=== PATIENT | male | born 1980 | race Caucasian/White ===

== ENCOUNTER → 2018-12-11 10:12 | Outpatient (CLI) | payer OTHER, SELFPAY ==
[2016-08-02 09:59] VITALS: BMI 47.1
[2018-12-11 12:46] LABS: ALB/GLOB Ratio 1.4 RATIO (0.9-2.4); AST(SGOT) 17 U/L (15-37); Alanine Aminotransfer ALT/SGPT 35 U/L (16-61); Albumin, Serum 3.9 g/dL (3.2-5.0); Alkaline Phosphatase 77 U/L (45-117); Anion Gap 10 (5-15); BUN 14 mg/dL (7-18); BUN/Creat Ratio 13.1 RATIO (10-20); Calcium,Total 8.7 mg/dL (8.5-10.1); Chloride 103 mmol/L (98-107); Cholesterol 102 mg/dL (200); Creatinine, Serum 1.07 mg/dL (0.70-1.30); EST Glomerular Filtration Rate 82 mL/min (>60); Est Glom Filt Rate - Afr Amer 99 mL/min (>60); Globulin 2.7 g/dL (2.2-4.2); Glucose 98 mg/dL (74-106); High Density Lipoprotein 36 mg/dL; Potassium 4.3 mmol/L (3.5-5.1); Protein, Total 6.6 g/dL (6.4-8.2); Sodium Level 142 mmol/L (136-145); Thyroid Stim Hormone (TSH) 1.98 uIU/mL (0.358-3.74); Triglycerides 94 mg/dL; Very Low Density Lipoprotein 19 mg/dL (5-40)
[2018-12-11 12:58] LABS: Microalbumin,Random Urine 6.7 mg/L (NO RANGE EST.); Microalbumin:Creatinine Ratio 3.7 mg/g CRE (<30 mg/g CRE)
== END ==
PROVIDERS: Family Provider Family Medicine; PCP Family Medicine; Referring Provider Family Medicine; Visit Provider Family Medicine
DX: I10 Essential (primary) hypertension (principal); E78.6 Lipoprotein deficiency
CPT/HCPCS: 36415; 80053; 80061; 82043; 82570; 84443

== ENCOUNTER → 2020-03-08 16:41 | Outpatient (CLI) | payer OTHER, SELFPAY ==
[2016-08-02 09:59] VITALS: BMI 47.1
[2020-03-08 18:40] LABS: Hemoglobin A1c 6.5 % (3.8-5.6)
[2020-03-08 18:46] LABS: Microalbumin,Random Urine 14.7 mg/L (NO RANGE EST.); Microalbumin:Creatinine Ratio 5.3 mg/g CRE (<30 mg/g CRE)
[2020-03-08 18:49] LABS: ALB/GLOB Ratio 1.3 RATIO (0.9-2.4); AST(SGOT) 24 U/L (15-37); Alanine Aminotransfer ALT/SGPT 38 U/L (16-61); Alkaline Phosphatase 83 U/L (45-117); Anion Gap 5 (5-15); BUN 12 mg/dL (7-18); Chloride 103 mmol/L (98-107); Creatinine, Serum 0.92 mg/dL (0.70-1.30); EST Glomerular Filtration Rate 97 mL/min (>60); Est Glom Filt Rate - Afr Amer 117 mL/min (>60); Globulin 3.1 g/dL (2.2-4.2); Glucose 98 mg/dL (74-106); Potassium 3.9 mmol/L (3.5-5.1); Protein, Total 7.1 g/dL (6.4-8.2); Sodium Level 141 mmol/L (136-145)
== END ==
PROVIDERS: PCP Family Medicine; Referring Provider Family Medicine; Visit Provider Family Medicine
DX: I10 Essential (primary) hypertension (principal); Z68.42 Body mass index [BMI] 45.0-49.9, adult
CPT/HCPCS: 36415; 80053; 82043; 82570; 83036

== ENCOUNTER → 2020-06-05 08:53 | Outpatient (CLI) | payer OTHER, SELFPAY ==
[2016-08-02 09:59] VITALS: BMI 47.1
[2020-06-05 09:51] LABS: Absolute Lymphocyte Count 2.79 X10^3/uL (0.83-4.51); Absolute Neutrophil Count 8.4 X10^3/uL (2.0-7.7); Basophil# 0.11 X10^3/uL; Basophil% 0.9 % (0-1); Eosinophils% 2.3 % (0-5); Hematocrit 45.9 % (40-54); Hemoglobin 14.5 g/dL (13.0-16.5); Lymphocyte # 2.79 X10^3/ul (4.0); Lymphocyte % 21.7 % (19-41); Mean Corp Hgb Conc 31.6 g/dL (32-36); Mean Corpuscular Hgb 29.9 pg (27.0-32.0); Mean Corpuscular Volume 94.6 fL (80-94); Mean Platelet Vol. 10.6 fl (6.2-12.0); Monocyte# 1.25 X10^3/uL; Monocyte% 9.7 % (0-10); NRBC Flagged by Analyzer 0 % (0-5); Neutrophil # 8.36 X10^3/uL (2.7-7.7); Neutrophil % 64.9 % (47-70); Platelet Count 337 K/mm3 (150-450); RBC Distribution Width CV 11.6 % (11.6-14.6); Red Blood Count 4.85 M/mm3 (4.6-6.2); White Blood Count 12.9 K/mm3 (4.4-11.0)
[2020-06-05 10:43] LABS: ALB/GLOB Ratio 1.1 RATIO (0.9-2.4); AST(SGOT) 11 U/L (15-37); Alanine Aminotransfer ALT/SGPT 31 U/L (16-61); Albumin, Serum 3.9 g/dL (3.2-5.0); Alkaline Phosphatase 75 U/L (45-117); Anion Gap 7 (5-15); BUN 13 mg/dL (7-18); BUN/Creat Ratio 14.9 RATIO (10-20); Calcium,Total 9.1 mg/dL (8.5-10.1); Chloride 102 mmol/L (98-107); Cholesterol 73 mg/dL (200); Creatinine, Serum 0.87 mg/dL (0.70-1.30); EST Glomerular Filtration Rate 103 mL/min (>60); Est Glom Filt Rate - Afr Amer 125 mL/min (>60); Globulin 3.5 g/dL (2.2-4.2); Glucose 114 mg/dL (74-106); High Density Lipoprotein 34 mg/dL; Potassium 4.2 mmol/L (3.5-5.1); Protein, Total 7.4 g/dL (6.4-8.2); Sodium Level 137 mmol/L (136-145); Triglycerides 76 mg/dL; Very Low Density Lipoprotein 15 mg/dL (5-40)
[2020-06-05 10:46] LABS: Hemoglobin A1c 6.3 % (3.8-5.6)
== END ==
PROVIDERS: PCP Family Medicine; Referring Provider Family Medicine; Visit Provider Family Medicine
DX: E11.9 Type 2 diabetes mellitus without complications (principal)
CPT/HCPCS: 36415; 80053; 80061; 83036; 85025

== ENCOUNTER 2020-09-20 15:46 | Outpatient (RCR) | payer OTHER, SELFPAY ==
[2016-08-02 09:59] VITALS: BMI 47.1
== END 2020-11-21 23:59 ==
LOC: IMMUN 15:46
PROVIDERS: PCP Family Medicine; Referring Provider Family Medicine; Visit Provider Family Medicine
DX: Z23 Encounter for immunization (principal)
CPT/HCPCS: 0001A; 0002A; 91300

== ENCOUNTER → 2021-05-21 08:05 | Outpatient (CLI) | payer OTHER, SELFPAY ==
[2021-05-21 10:20] LABS: AST(SGOT) 13 U/L (15-37); Alanine Aminotransfer ALT/SGPT 28 U/L (16-61); Albumin, Serum 3.6 g/dL (3.2-5.0); Alkaline Phosphatase 69 U/L (45-117); Anion Gap 6 (5-15); BUN 12 mg/dL (7-18); BUN/Creat Ratio 13.6 RATIO (10-20); Calcium,Total 8.9 mg/dL (8.5-10.1); Chloride 103 mmol/L (98-107); Creatinine, Serum 0.88 mg/dL (0.70-1.30); EST Glomerular Filtration Rate 101 mL/min (>60); Est Glom Filt Rate - Afr Amer 122 mL/min (>60); Globulin 3.5 g/dL (2.2-4.2); Glucose 132 mg/dL (74-106); Protein, Total 7.1 g/dL (6.4-8.2); Sodium Level 138 mmol/L (136-145)
[2021-05-21 10:25] LABS: Microalbumin,Random Urine 6.1 mg/L (NO RANGE EST.); Microalbumin:Creatinine Ratio 4.7 mg/g CRE (<30 mg/g CRE)
== END ==
PROVIDERS: PCP Family Medicine; Referring Provider Family Medicine; Visit Provider Family Medicine
DX: I10 Essential (primary) hypertension (principal)
CPT/HCPCS: 36415; 80053; 82043; 82570

== ENCOUNTER → 2021-11-14 | Outpatient (CLI) | payer OTHER, SELFPAY ==
[2021-11-14 10:27] LABS: Microalbumin,Random Urine 15.2 mg/L (NO RANGE EST.); Microalbumin:Creatinine Ratio 8.4 mg/g CRE (<30 mg/g CRE)
[2021-11-14 10:40] LABS: ALB/GLOB Ratio 1.1 RATIO (0.9-2.4); AST(SGOT) 23 U/L (15-37); Alanine Aminotransfer ALT/SGPT 39 U/L (16-61); Albumin, Serum 3.6 g/dL (3.2-5.0); Alkaline Phosphatase 61 U/L (45-117); Anion Gap 5 (5-15); BUN 13 mg/dL (7-18); BUN/Creat Ratio 13.3 RATIO (10-20); Calcium,Total 8.8 mg/dL (8.5-10.1); Chloride 102 mmol/L (98-107); Creatinine, Serum 0.98 mg/dL (0.70-1.30); EST Glomerular Filtration Rate 90 mL/min (>60); Est Glom Filt Rate - Afr Amer 109 mL/min (>60); Globulin 3.4 g/dL (2.2-4.2); Glucose 140 mg/dL (74-106); Potassium 4.4 mmol/L (3.5-5.1); Sodium Level 138 mmol/L (136-145); Thyroid Stim Hormone (TSH) 2.46 uIU/mL (0.358-3.74)
[2021-11-14 10:58] LABS: Hemoglobin A1c 6.8 % (3.8-5.6)
== END | disposition home or self-care (01) ==
PROVIDERS: PCP Family Medicine; Visit Provider Family Medicine
DX: E11.9 Type 2 diabetes mellitus without complications (principal); E66.01 Morbid (severe) obesity due to excess calories; Z68.43 Body mass index [BMI] 50.0-59.9, adult; I10 Essential (primary) hypertension
CPT/HCPCS: 36415; 80053; 82043; 82570; 83036; 84443

== ENCOUNTER → 2022-05-13 | Outpatient (CLI) | payer OTHER, SELFPAY ==
[2022-05-13 09:46] LABS: Absolute Lymphocyte Count 2.93 X10^3/uL (0.83-4.51); Basophil# 0.14 X10^3/uL; Eosinophil# 0.31 X10^3/uL; Eosinophils% 2.2 % (0-5); Hematocrit 45.4 % (40-54); Hemoglobin 15.2 g/dL (13.0-16.5); Lymphocyte # 2.93 X10^3/ul (0.83-4.51); Mean Corp Hgb Conc 33.5 g/dL (32-36); Mean Corpuscular Hgb 31.2 pg (27.0-32.0); Mean Corpuscular Volume 93.2 fL (80-94); Mean Platelet Vol. 10.9 fl (6.2-12.0); Monocyte% 10.1 % (0-10); NRBC Flagged by Analyzer 0 % (0-5); Neutrophil # 9.02 X10^3/uL (2.7-7.7); Neutrophil % 64.8 % (47-70); Platelet Count 337 K/mm3 (150-450); RBC Distribution Width CV 11.9 % (11.6-14.6); RBC Distribution Width SD 41.1 fl (35.1-43.9); Red Blood Count 4.87 M/mm3 (4.6-6.2); White Blood Count 13.9 K/mm3 (4.4-11.0)
[2022-05-13 09:59] LABS: ALB/GLOB Ratio 1.3 RATIO (0.9-2.4); AST(SGOT) 12 U/L (15-37); Alanine Aminotransfer ALT/SGPT 33 U/L (16-61); Albumin, Serum 3.8 g/dL (3.2-5.0); Alkaline Phosphatase 74 U/L (45-117); Anion Gap 7 (5-15); BUN 9 mg/dL (7-18); BUN/Creat Ratio 10.2 RATIO (10-20); Chloride 105 mmol/L (98-107); Cholesterol 75 mg/dL (200); Creatinine, Serum 0.88 mg/dL (0.70-1.30); EST Glomerular Filtration Rate 101 mL/min (>60); Est Glom Filt Rate - Afr Amer 122 mL/min (>60); Globulin 2.9 g/dL (2.2-4.2); Glucose 155 mg/dL (74-106); High Density Lipoprotein 35 mg/dL; Potassium 4.3 mmol/L (3.5-5.1); Protein, Total 6.7 g/dL (6.4-8.2); Sodium Level 140 mmol/L (136-145); Triglycerides 91 mg/dL; Very Low Density Lipoprotein 18 mg/dL (5-40)
[2022-05-13 10:04] LABS: Hemoglobin A1c 7.2 % (3.8-5.6)
== END | disposition home or self-care (01) ==
LOC: MFPLAB 08:34
PROVIDERS: PCP Family Medicine; Visit Provider Family Medicine
DX: E11.9 Type 2 diabetes mellitus without complications (principal)
CPT/HCPCS: 36415; 80053; 80061; 83036; 85025

== ENCOUNTER → 2022-11-26 | Outpatient (CLI) | payer OTHER, SELFPAY ==
[2022-11-26 09:54] LABS: Absolute Lymphocyte Count 2.92 X10^3/uL (0.83-4.51); Absolute Neutrophil Count 9.9 X10^3/uL (2.0-7.7); Basophil# 0.14 X10^3/uL; Basophil% 0.9 % (0-1); Hematocrit 46.4 % (40-54); Hemoglobin 14.8 g/dL (13.0-16.5); Lymphocyte # 2.92 X10^3/ul (0.83-4.51); Lymphocyte % 19.8 % (19-41); Mean Corp Hgb Conc 31.9 g/dL (32-36); Mean Corpuscular Volume 94.1 fL (80-94); Mean Platelet Vol. 10.7 fl (6.2-12.0); Monocyte# 1.38 X10^3/uL; Monocyte% 9.3 % (0-10); NRBC Flagged by Analyzer 0 % (0-5); Neutrophil # 9.86 X10^3/uL (2.7-7.7); Neutrophil % 66.9 % (47-70); Platelet Count 353 K/mm3 (150-450); RBC Distribution Width CV 11.9 % (11.6-14.6); RBC Distribution Width SD 41.2 fl (35.1-43.9); Red Blood Count 4.93 M/mm3 (4.6-6.2); White Blood Count 14.8 K/mm3 (4.4-11.0)
[2022-11-26 10:25] LABS: ALB/GLOB Ratio 1.1 RATIO (0.9-2.4); AST(SGOT) 15 U/L (15-37); Alanine Aminotransfer ALT/SGPT 27 U/L (16-61); Albumin, Serum 3.9 g/dL (3.2-5.0); Alkaline Phosphatase 66 U/L (45-117); Anion Gap 6 (5-15); BUN 11 mg/dL (7-18); BUN/Creat Ratio 11.8 RATIO (10-20); Calcium,Total 9.2 mg/dL (8.5-10.1); Chloride 102 mmol/L (98-107); Creatinine, Serum 0.94 mg/dL (0.70-1.30); EST Glomerular Filtration Rate 94 mL/min (>60); Est Glom Filt Rate - Afr Amer 114 mL/min (>60); Globulin 3.6 g/dL (2.2-4.2); Glucose 130 mg/dL (74-106); Potassium 4.1 mmol/L (3.5-5.1); Protein, Total 7.5 g/dL (6.4-8.2); Sodium Level 138 mmol/L (136-145)
== END | disposition home or self-care (01) ==
LOC: MFPLAB 08:41
PROVIDERS: PCP Family Medicine; Visit Provider Family Medicine
DX: M79.604 Pain in right leg (principal); E11.9 Type 2 diabetes mellitus without complications
CPT/HCPCS: 36415; 80053; 85025

== ENCOUNTER → 2023-12-11 | Outpatient (CLI) | payer OTHER, SELFPAY ==
[2023-12-11 10:07] LABS: Absolute Lymphocyte Count 2.62 X10^3/uL (0.83-4.51); Absolute Neutrophil Count 7.9 X10^3/uL (2.0-7.7); Basophil# 0.11 X10^3/uL; Basophil% 0.9 % (0-1); Eosinophil# 0.23 X10^3/uL; Eosinophils% 1.9 % (0-5); Hematocrit 45.2 % (40-54); Hemoglobin 14.9 g/dL (13.0-16.5); Lymphocyte # 2.62 X10^3/ul (0.83-4.51); Lymphocyte % 21.8 % (19-41); Mean Corpuscular Hgb 30.6 pg (27.0-32.0); Mean Corpuscular Volume 92.8 fL (80-94); Mean Platelet Vol. 10.5 fl (6.2-12.0); Monocyte# 1.15 X10^3/uL; Monocyte% 9.6 % (0-10); NRBC Flagged by Analyzer 0 % (0-5); Neutrophil # 7.86 X10^3/uL (2.7-7.7); Neutrophil % 65.4 % (47-70); Platelet Count 363 K/mm3 (150-450); RBC Distribution Width CV 12.1 % (11.6-14.6); RBC Distribution Width SD 41.7 fl (35.1-43.9); Red Blood Count 4.87 M/mm3 (4.6-6.2)
[2023-12-11 10:39] LABS: ALB/GLOB Ratio 1.2 RATIO (0.9-2.4); AST(SGOT) 16 U/L (15-37); Alanine Aminotransfer ALT/SGPT 27 U/L (16-61); Albumin, Serum 3.9 g/dL (3.2-5.0); Alkaline Phosphatase 58 U/L (45-117); Anion Gap 7 (5-15); BUN 10 mg/dL (7-18); BUN/Creat Ratio 11.9 RATIO (10-20); Calcium,Total 9.4 mg/dL (8.5-10.1); Chloride 104 mmol/L (98-107); Cholesterol 65 mg/dL (200); Creatinine, Serum 0.84 mg/dL (0.70-1.30); EST Glomerular Filtration Rate 106 mL/min (>60); Est Glom Filt Rate - Afr Amer 129 mL/min (>60); Globulin 3.3 g/dL (2.2-4.2); Glucose 102 mg/dL (74-106); High Density Lipoprotein 33 mg/dL; Protein, Total 7.2 g/dL (6.4-8.2); Sodium Level 138 mmol/L (136-145); Triglycerides 105 mg/dL; Very Low Density Lipoprotein 21 mg/dL (5-40)
[2023-12-11 11:17] LABS: Microalbumin,Random Urine 7.1 mg/L (NO RANGE EST.); Microalbumin:Creatinine Ratio 4.9 mg/g CRE (<30 mg/g CRE)
== END | disposition home or self-care (01) ==
LOC: MFPLAB 09:07
PROVIDERS: PCP Family Medicine; Visit Provider Family Medicine
DX: E66.01 Morbid (severe) obesity due to excess calories (principal); Z68.43 Body mass index [BMI] 50.0-59.9, adult; E11.9 Type 2 diabetes mellitus without complications
CPT/HCPCS: 36415; 80053; 80061; 82043; 82570; 85025

== ENCOUNTER → 2024-06-04 | Outpatient (CLI) | payer OTHER, SELFPAY ==
[2024-06-04 11:10] LABS: ALB/GLOB Ratio 1.2 RATIO (0.9-2.4); AST(SGOT) 14 U/L (15-37); Alanine Aminotransfer ALT/SGPT 34 U/L (16-61); Albumin, Serum 3.7 g/dL (3.2-5.0); Alkaline Phosphatase 65 U/L (45-117); Anion Gap 6 (5-15); BUN 12 mg/dL (7-18); BUN/Creat Ratio 12.7 RATIO (10-20); Calcium,Total 8.9 mg/dL (8.5-10.1); Chloride 104 mmol/L (98-107); Creatinine, Serum 0.94 mg/dL (0.70-1.30); EST Glomerular Filtration Rate 93 mL/min (>60); Est Glom Filt Rate - Afr Amer 112 mL/min (>60); Globulin 3.2 g/dL (2.2-4.2); Glucose 119 mg/dL (74-106); Potassium 4.2 mmol/L (3.5-5.1); Protein, Total 6.9 g/dL (6.4-8.2); Sodium Level 138 mmol/L (136-145)
== END | disposition home or self-care (01) ==
LOC: MFPLAB 08:30
PROVIDERS: PCP Family Medicine; Referring Provider Family Medicine; Visit Provider Family Medicine
DX: E11.9 Type 2 diabetes mellitus without complications (principal); Z68.43 Body mass index [BMI] 50.0-59.9, adult; E66.813 Obesity, class 3
CPT/HCPCS: 36415; 80053; 84443

== ENCOUNTER → 2024-11-23 | Outpatient (CLI) | payer OTHER, SELFPAY ==
[2024-11-23 10:26] LABS: Absolute Lymphocyte Count 2.92 X10^3/uL (0.83-4.51); Basophil# 0.14 X10^3/uL; Basophil% 1.1 % (0-1); Eosinophil# 0.23 X10^3/uL; Eosinophils% 1.8 % (0-5); Hematocrit 44.8 % (40-54); Hemoglobin 15.1 g/dL (13.0-16.5); Lymphocyte # 2.92 X10^3/ul (0.83-4.51); Lymphocyte % 23.3 % (19-41); Mean Corp Hgb Conc 33.7 g/dL (32-36); Mean Corpuscular Hgb 31.2 pg (27.0-32.0); Mean Corpuscular Volume 92.6 fL (80-94); Mean Platelet Vol. 10.7 fl (6.2-12.0); Monocyte# 1.17 X10^3/uL; Monocyte% 9.3 % (0-10); NRBC Flagged by Analyzer 0 % (0-5); Neutrophil # 8.03 X10^3/uL (2.7-7.7); Platelet Count 313 K/mm3 (150-450); RBC Distribution Width CV 11.9 % (11.6-14.6); RBC Distribution Width SD 40.8 fl (35.1-43.9); Red Blood Count 4.84 M/mm3 (4.6-6.2); White Blood Count 12.6 K/mm3 (4.4-11.0)
--- OUTSIDE RECORDS SUMMARY | 2024-11-23 10:41 | XMS RPT_ITS | CCD ---
Author Organization [facility] Care Team Providers Care Promotions Producer Name Role Phone Librado Rai Attending Unavailable Fredi, Librado Primary Care Unavailable Librado Rai Attending Unavailable Librado Rai Referring Unavailable Librado Rai Primary Care Unavailable Assessment, Health Risk Attending Unavaila ble Librado Rai Primary Care Unavailable Problems Problem Classification Problem Date Documented Da te Episodic/Chronic Diabetes mellitus without complication (1 source) Type 2 diabetes mellitus without complications; Translations: [Type 2 diabetes mellitus without complications] Onset: 07-01-2024 Chronic Other nutritional; endocrine; and metabolic disorders (1 source) Morbid (severe) obesity due to excess calories; Translations: [Morbid (severe) obesity due to excess calories] Onset: 12-24-2023 Chronic Results Test Name Value Interpretation Reference Range Facil ity Comprehensive Metabolic Prof wyon 06-04-2024 Albumin [Mass/Vol] 3.7 g/dL Normal 3.2-5.0 [facility] Comment on above: Order Comment: Order Date: 06/04/24 Order Info: 0786-1 - CMP Order Info: 3016-3 - TSH Performed By: #### L 501.4720, L561.5269 #### [facility] [address] [place], [address] Albumin/Globulin [Mass ratio] 1.2 {ratio} Normal 0.9-2.4 [facility] Comment on above: Order Comment: Order Date: 06/04/24 Order Info: 0786-1 - CMP Order Info: 3016-3 - TSH Performed By: #### L 501.9520, L506.0811 #### [facility] [address] [place], [address] ALK P 65 U/L Normal 45-117 [facility] Comment on above: Order Comment: Order Date: 06/04/24 Order Info: 0786-1 - CMP Order Info: 3015-3 - TSH Performed By: #### L 501.9520, L500.4050 #### [facility] [address] [place], [address] ALT [Catalytic activity/Vol] 34 U/L Normal 16-61 [facility] Comment on above: Order Comment: Order Date: 06/04/24 Order Info: 86-1 - CMP Order Info: 3015-3 - TSH Performed By: #### L 501.9520, L500.4050 #### [facility] [address] [place], [address] AST [Catalytic activity/Vol] 14 U/L Low 15-37 [facility] Comment on above: Order Comment: Order Date: 06/04/24 Order Info: 07-1 - CMP Order Info: 3 - TSH Performed By: #### L 501.9520, L500.4050 #### [facility] [address] [place], [address] Bilirubin [Mass/Vol] 1.10 mg/dL High 0.20-1.00 [facility] Comment on above: Order Comment: Order Date: 06/04/24 Order Info: 07-1 - CMP Order Info: 301-3 - TSH Result Comment: For patients on eltrombopag therapy, use of Dimension Estelline TBIL is not recommended. Performed By: #### L 501.9520, L500.4050 #### [facility] [address] [place], [address] BUN/CRE 12.7 RATIO Normal 10-20 [facility] Comment on above: Order Comment: Order Date: 06/04/24 Order Info: 0786-1 - CMP Order Info: 3015-3 - TSH Performed By: #### L 501.9520, L500.4050 #### [facility] [address] [place], [address] CA,Total 8.9 mg/dL Normal 8.5-10.1 [facility] Comment on above: Order Comment: Order Date: 06/04/24 Order Info: 0786-1 - CMP Order Info: 30163 - TSH Performed By: #### L 260.9520, L500.4050 #### [facility] [address] [place], [address] Chloride [Moles/Vol] 104 mmol/L Normal 98-107 [facility] Comment on above: Order Comment: Order Date: 06/04/24 Order Info: 0786- - CMP Order Info: 30163 - TSH Performed By: #### L 501.9520, L500.4050 #### [facility] [address] [place], [address] CO2 [Moles/Vol] 28.0 mmol/L Normal 21.0-32.0 [facility] Comment on above: Order Comment: Order Date: 06/04/24 Order Info: 0786- - CMP Order Info: 3013 - TSH Performed By: #### L 501.9520, L500.4050 #### [facility] [address] [place], [address] Creatinine [Mass/Vol] 0.94 mg/dL Normal 0.70-1.30 [facility] Comment on above: Order Comment: Order Date: 06/04/24 Order Info: 0786- - CMP Order Info: 3016-3 - TSH Result Comment: The validity of the calculated GFR GFRAA in patients over 70 years has not been determined. Clinical correlation is essential. Performed By: #### L 501.9520, L500.4050 #### [facility] [address] [place], [address] EST GFR - AA 112 mL/min Normal >60 [facility] Comment on above: Order Comment: Order Date: 06/04/24 Order Info: 0786-1 - CMP Order Info: 3015-08 - TSH Result Comment: Afri can Portuguese GFR Calc Performed By: #### L 501.9520, L500.4050 #### [facility] [address] [place], [address] GAP 6 Normal 5-15 [facility] Comment on above: Order Comment: Order Date: 06/04/24 Order Info: 0786 - CMP Order Info: 3015-08 - TSH Performed By: #### L 501.9520, L500.4050 #### [facility] [address] [place], [address] GFR/1.73 sq M.predicted among non-blacks MDRD (S/P/Bld) [Vol rate/Area] 93 mL/min/{1.73_m2} Normal >60 [facility] Comment on above: Order Comment: Order Date: 06/04/24 Order Info: 07 - [facility] Order Info: 3015-08 - TSH Result Comment: Non- GFR Calc Performed By: #### L 501.9520, L500.4050 #### [facility] [address] [place], [address] Globulin (S) [Mass/Vol] 3.2 g/dL Normal 2.2-4.2 [facility] Comment on above: Order Comment: Order Date: 06/04/24 Order Info: 0786 - CMP Order Info: 3015-08 - TSH Performed By: #### L 501.9520, L500.4050 #### [facility] [address] [place], [address] Glucose [Mass/Vol] 119 mg/dL High 74-106 [facility] Comment on above: Order Comment: Order Date: 06/04/24 Order Info: 0786- - CMP Order Info: 3015-08 - TSH Result Comment: Fast ing Glucose result from 100 to 125 mg/dL suggests IMPAIRED HOMEOSTASIS per A.D.A. criteria. Performed By: #### L 501.9520, L500.4050 #### [facility] [address] [place], [address] Potassium [Moles/Vol] 4.2 mmol/L Normal 3.5-5.1 [facility] Comment on above: Order Comment: Order Date: 06/04/24 Order Info: 0786-1 - CMP Order Info: 301-3 - TSH Performed By: #### L 501.9520, L500.4050 #### [facility] [address] [place], [address] Sodium [Moles/Vol] 138 mmol/L Normal 136-145 [facility] Comment on above: Order Comment: Order Date: 06/04/24 Order Info: 0786-1 - CMP Order Info: 301-3 - TSH Performed By: #### L 501.9520, L500.4050 #### [facility] [address] [place], [address] T PROT 6.9 g/dL Normal 6.4-8.2 [facility] Comment on above: Order Comment: Order Date: 06/04/24 Order Info: 0786- - CMP Order Info: 3013 - TSH Performed By: #### L 501.9520, L500.4050 #### [facility] [address] [place], [address] Urea nitrogen [Mass/Vol] 12 mg/dL Normal 7-18 [facility] Comment on above: Order Comment: Order Date: 06/04/24 Order Info: 0786-1 - CMP Order Info: 3016-3 - TSH Performed By: #### L 501.9520, L500.4050 #### [facility] [address] [place], [address] Thyroid Stim Hormone (TSH)on 06-04-2024 TSH 1.970 uIU/mL Normal 0.358-3.740 [facility] Comment on above: Order Comment: Order Date: 06/04/24 Order Info: 0786-1 - CMP Order Info: 3016-3 - TSH Performed By: #### L 501.9520, L500.4050 #### [facility] [address] [place], [address] Lipid Profileon 01-01-2024 CHOL Normal 200 [facility] Comment on above: Result Comment: NO S HOW Performed By: #### L 500.4100 #### [facility] [address] [place], [address] HDL Normal [facility] Comment on above: Result Comment: NO S HOW Performed By: #### L 500.4100 #### [facility] [address] [place], [address] LDL Normal 0-130 [facility] Comment on above: Result Comment: NO S HOW Performed By: #### L 500.4100 #### [facility] [address] [place], [address] TRIG Normal [facility] Comment on above: Result Comment: NO S HOW Performed By: #### L 500.4100 #### [facility] [address] [place], [address] VLDL Normal 5-40 [facility] Comment on above: Result Comment: NO S HOW Performed By: #### L 500.4100 #### [facility] [address] [place], [address] CBC W/Diff, Automatedon 11-15 Absolute Lymph 2.62 X10 3/uL Normal 0.83-4.51 [facility] Comment on above: Order Comment: Order Date: 12/11/23 Order Info: 0184-1 - CBCD Performed By: #### L 100.0100, L500.4050, L502.0250, L500.4100 #### [facility] [address] [place], [address] Absolute Neut 7.9 X10 3/uL High 2.0-7.7 [facility] Comment on above: Order Comment: Order Date: 12/11/23 Order Info: 0184-1 - CBCD Performed By: #### L 100.0100, L500.4050, L502.0250, L500.4100 #### [facility] [address] [place], [address] Basophils/100 WBC (Bld) 0.9 % Normal 0-1 [facility] Comment on above: Order Comment: Order Date: 12/11/23 Order Info: 0184-1 - CBCD Performed By: #### L 100.0100, L500.4050, L502.0250, L500.4100 #### [facility] [address] [place], [address] Eosinophils/100 WBC (Bld) 1.9 % Normal 0-5 [facility] Comment on above: Order Comment: Order Date: 12/11/23 Order Info: 0184-1 - CBCD Performed By: #### L 100.0100, L500.4050, L502.0250, L500.4100 #### [facility] [address] [place], [address] Erythrocyte distribution width (RBC) [Ratio] 12.1 % Normal 11.6-14.6 [facility] Comment on above: Order Comment: Order Date: 12/11/23 Order Info: 0184-1 - CBCD Performed By: #### L 100.0100, L500.4050, L502.0250, L500.4100 #### [facility] [address] [place], [address] Hematocrit (Bld) [Volume fraction] 45.2 % Normal 40-54 [facility] Comment on above: Order Comment: Order Date: 12/11/23 Order Info: 0184-1 - CBCD Performed By: #### L 100.0100, L500.4050, L502.0250, L500.4100 #### [facility] [address] [place], [address] Hemoglobin (Bld) [Mass/Vol] 14.9 g/dL Normal 13.0-16.5 [facility] Comment on above: Order Comment: Order Date: 12/11/23 Order Info: 0184-1 - CBCD Performed By: #### L 100.0100, L500.4050, L502.0250, L500.4100 #### [facility] [address] [place], [address] IG% 0.400 Normal 0.0-0.9 [facility] Comment on above: Order Comment: Order Date: 12/11/23 Order Info: 0184- - CBCD Result Comment: IG% - Immature Granulocytes (promyelocytes, myelocytes and metamyelocytes) > 1% indicates that a LEFT SHIFT is Present. Performed By: #### L 100.0100, L500.4050, L502.0250, L500.4100 #### [facility] [address] [place], [address] Lymphocytes/100 WBC (Bld) 21.8 % Normal 19-41 [facility] Comment on above: Order Comment: Order Date: 12/11/23 Order Info: 0184-1 - CBCD Performed By: #### L 100.0100, L500.4050, L502.0250, L500.4100 #### [facility] [address] [place], [address] MCH (RBC) [Entitic mass] 30.6 pg Normal 27.0-32.0 [facility] Comment on above: Order Comment: Order Date: 12/11/23 Order Info: 0184- - CBCD Performed By: #### L 100.0100, L500.4050, L502.0250, L500.4100 #### [facility] [address] [place], [address] MCHC (RBC) [Mass/Vol] 33.0 g/dL Normal 32-36 [facility] Comment on above: Order Comment: Order Date: 12/11/23 Order Info: 018-1 - CBCD Performed By: #### L 100.0100, L500.4050, L502.0250, L500.4100 #### [facility] [address] [place], [address] MCV (RBC) [Entitic vol] 92.8 fL Normal 80-94 [facility] Comment on above: Order Comment: Order Date: 12/11/23 Order Info: 018- - CBCD Performed By: #### L 100.0100, L500.4050, L502.0250, L500.4100 #### [facility] [address] [place], [address] Monocytes/100 WBC (Bld) 9.6 % Normal 0-10 [facility] Comment on above: Order Comment: Order Date: 12/11/23 Order Info: 018- - CBCD Performed By: #### L 100.0100, L500.4050, L502.0250, L500.4100 #### [facility] [address] [place], [address] Neutrophils/100 WBC (Bld) 65.4 % Normal 47-70 [facility] Comment on above: Order Comment: Order Date: 12/11/23 Order Info: 018- - CBCD Performed By: #### L 100.0100, L500.4050, L502.0250, L500.4100 #### [facility] [address] [place], [address] Nucleated RBC (Bld) [#/Vol] 0 10*3/uL Normal 0-5 [facility] Comment on above: Order Comment: Order Date: 12/11/23 Order Info: 0184-1 - CBCD Performed By: #### L 100.0100, L500.4050, L502.0250, L500.4100 #### [facility] [address] [place], [address] Platelet mean volume (Bld) [Entitic vol] 10.5 fL Normal 6.2-12.0 [facility] Comment on above: Order Comment: Order Date: 12/11/23 Order Info: 0184-1 - CBCD Performed By: #### L 100.0100, L500.4050, L502.0250, L500.4100 #### [facility] [address] [place], [address] Platelets (Bld) [#/Vol] 363 10*3/uL Normal 150-450 [facility] Comment on above: Order Comment: Order Date: 12/11/23 Order Info: 0184- - CBCD Performed By: #### L 100.0100, L500.4050, L502.0250, L500.4100 #### [facility] [address] [place], [address] RBC (Bld) [#/Vol] 4.87 10*6/uL Normal 4.6-6.2 [facility] Comment on above: Order Comment: Order Date: 12/11/23 Order Info: 0184- - CBCD Performed By: #### L 100.0100, L500.4050, L502.0250, L500.4100 #### [facility] [address] [place], [address] RDW SD 41.7 fl Normal 35.1-43.9 [facility] Comment on above: Order Comment: Order Date: 12/11/23 Order Info: 0184-1 - CBCD Performed By: #### L 100.0100, L500.4050, L502.0250, L500.4100 #### [facility] [address] [place], [address] WBC (Bld) [#/Vol] 12.0 10*3/uL High 4.4-11.0 [facility] Comment on above: Order Comment: Order Date: 12/11/23 Order Info: 0184-1 - CBCD Performed By: #### L 100.0100, L500.4050, L502.0250, L500.4100 #### [facility] [address] [place], [address] Comprehensive Metabolic Prof ilon 12-11-2023 Albumin [Mass/Vol] 3.9 g/dL Normal 3.2-5.0 [facility] Comment on above: Order Comment: Order Date: 12/11/23 Order Info: 0786-1 - CMP Order Info: [id number] - LIPID Performed By: #### L 100.0100, L500.4050, L502.0250, L500.4100 #### [facility] [address] [place], [address] Albumin/Globulin [Mass ratio] 1.2 {ratio} Normal 0.9-2.4 [facility] Comment on above: Order Comment: Order Date: 12/11/23 Order Info: 0786-1 - CMP Order Info: [id number] - LIPID Performed By: #### L 100.0100, L500.4050, L502.0250, L500.4100 #### [facility] [address] [place], [address] ALK P 58 U/L Normal 45-117 [facility] Comment on above: Order Comment: Order Date: 12/11/23 Order Info: 0786-1 - CMP Order Info: [id number] - LIPID Performed By: #### L 100.0100, L500.4050, L502.0250, L500.4100 #### [facility] [address] [place], [address] ALT [Catalytic activity/Vol] 27 U/L Normal 16-61 [facility] Comment on above: Order Comment: Order Date: 12/11/23 Order Info: 0786- - CMP Order Info: [id number] - LIPID Performed By: #### L 100.0100, L500.4050, L502.0250, L500.4100 #### [facility] [address] [place], [address] AST [Catalytic activity/Vol] 16 U/L Normal 15-37 [facility] Comment on above: Order Comment: Order Date: 12/11/23 Order Info: 0786- - CMP Order Info: [id number] - LIPID Performed By: #### L 100.0100, L500.4050, L502.0250, L500.4100 #### [facility] [address] [place], [address] Bilirubin [Mass/Vol] 1.70 mg/dL High 0.20-1.00 [facility] Comment on above: Order Comment: Order Date: 12/11/23 Order Info: 07- - CMP Order Info: [id number] - LIPID Result Comment: For patients on eltrombopag therapy, use of Dimension Estelline TBIL is not recommended. Performed By: #### L 100.0100, L500.4050, L502.0250, L500.4100 #### [facility] [address] [place], [address] BUN/CRE 11.9 RATIO Normal 10-20 [facility] Comment on above: Order Comment: Order Date: 12/11/23 Order Info: 0786- - CMP Order Info: [id number] - LIPID Performed By: #### L 100.0100, L500.4050, L502.0250, L500.4100 #### [facility] [address] [place], [address] CA,Total 9.4 mg/dL Normal 8.5-10.1 [facility] Comment on above: Order Comment: Order Date: 12/11/23 Order Info: 0786- - CMP Order Info: [id number] - LIPID Performed By: #### L 100.0100, L500.4050, L502.0250, L500.4100 #### [facility] [address] [place], [address] Chloride [Moles/Vol] 104 mmol/L Normal 98-107 [facility] Comment on above: Order Comment: Order Date: 12/11/23 Order Info: 0786-1 - CMP Order Info: [id number] - LIPID Performed By: #### L 100.0100, L500.4050, L502.0250, L500.4100 #### [facility] [address] [place], [address] CO2 [Moles/Vol] 27.0 mmol/L Normal 21.0-32.0 [facility] Comment on above: Order Comment: Order Date: 12/11/23 Order Info: 0786- - CMP Order Info: [id number] - LIPID Performed By: #### L 100.0100, L500.4050, L502.0250, L500.4100 #### [facility] [address] [place], [address] Creatinine [Mass/Vol] 0.84 mg/dL Normal 0.70-1.30 [facility] Comment on above: Order Comment: Order Date: 12/11/23 Order Info: 0786- - CMP Order Info: [id number] - LIPID Result Comment: The validity of the calculated GFR GFRAA in patients over 70 years has not been determined. Clinical correlation is essential. Performed By: #### L 100.0100, L500.4050, L502.0250, L500.4100 #### [facility] [address] [place], [address] EST GFR - AA 129 mL/min Normal >60 [facility] Comment on above: Order Comment: Order Date: 12/11/23 Order Info: 0786-1 - CMP Order Info: [id number] - LIPID Result Comment: Afri can Portuguese GFR Calc Performed By: #### L 100.0100, L500.4050, L502.0250, L500.4100 #### [facility] [address] [place], [address] GAP 7 Normal 5-15 [facility] Comment on above: Order Comment: Order Date: 12/11/23 Order Info: 0786-1 - CMP Order Info: [id number] - LIPID Performed By: #### L 100.0100, L500.4050, L502.0250, L500.4100 #### [facility] [address] [place], [address] GFR/1.73 sq M.predicted among non-blacks MDRD (S/P/Bld) [Vol rate/Area] 106 mL/min/{1.73_m2} Normal >60 [facility] Comment on above: Order Comment: Order Date: 12/11/23 Order Info: 07 - CMP Order Info: [id number] - LIPID Result Comment: Non- GFR Calc Performed By: #### L 100.0100, L500.4050, L502.0250, L500.4100 #### [facility] [address] [place], [address] Globulin (S) [Mass/Vol] 3.3 g/dL Normal 2.2-4.2 [facility] Comment on above: Order Comment: Order Date: 12/11/23 Order Info: 0786- - CMP Order Info: [id number] - LIPID Performed By: #### L 100.0100, L500.4050, L502.0250, L500.4100 #### [facility] [address] [place], [address] Glucose [Mass/Vol] 102 mg/dL Normal 74-106 [facility] Comment on above: Order Comment: Order Date: 12/11/23 Order Info: 0786-1 - CMP Order Info: [id number] - LIPID Result Comment: Fast ing Glucose result from 100 to 125 mg/dL suggests IMPAIRED HOMEOSTASIS per A.D.A. criteria. Performed By: #### L 100.0100, L500.4050, L502.0250, L500.4100 #### [facility] [address] [place], [address] Potassium [Moles/Vol] 4.0 mmol/L Normal 3.5-5.1 [facility] Comment on above: Order Comment: Order Date: 12/11/23 Order Info: 0786-1 - CMP Order Info: [id number] - LIPID Performed By: #### L 100.0100, L500.4050, L502.0250, L500.4100 #### [facility] [address] [place], [address] Sodium [Moles/Vol] 138 mmol/L Normal 136-145 [facility] Comment on above: Order Comment: Order Date: 12/11/23 Order Info: 0786- - CMP Order Info: [id number] - LIPID Performed By: #### L 100.0100, L500.4050, L502.0250, L500.4100 #### [facility] [address] [place], [address] T PROT 7.2 g/dL Normal 6.4-8.2 [facility] Comment on above: Order Comment: Order Date: 12/11/23 Order Info: 0786- - CMP Order Info: [id number] - LIPID Performed By: #### L 100.0100, L500.4050, L502.0250, L500.4100 #### [facility] [address] [place], [address] Urea nitrogen [Mass/Vol] 10 mg/dL Normal 7-18 [facility] Comment on above: Order Comment: Order Date: 12/11/23 Order Info: 0786-1 - CMP Order Info: [id number] - LIPID Performed By: #### L 100.0100, L500.4050, L502.0250, L500.4100 #### [facility] [address] [place], [address] Lipid Profileon 12-11-2023 Cholesterol [Mass/Vol] 65 mg/dL Normal 200 [facility] Comment on above: Order Comment: Order Date: 12/11/23 Order Info: 0786-1 - CMP Order Info: [id number] - LIPID Result Comment: <200 mg/dL Desirable 200-240 mg/dL Borderline >240 mg/dL High Risk Performed By: #### L 100.0100, L500.4050, L502.0250, L500.4100 #### [facility] [address] [place], [address] Cholesterol in HDL [Mass/Vol] 33 mg/dL Low [facility] Comment on above: Order Comment: Order Date: 12/11/23 Order Info: 0786- - CMP Order Info: [id number] - LIPID Result Comment: The drugs N-Acetylcysteine and Metamizole may falsely depress this assay. Reference Range HDL <40 mg/dL Low HDL Cholesterol HDL >or= 60 mg/dL High HDL Cholesterol Performed By: #### L 100.0100, L500.4050, L502.0250, L500.4100 #### [facility] [address] [place], [address] Cholesterol in LDL [Mass/Vol] 11 mg/dL Normal 0-130 [facility] Comment on above: Order Comment: Order Date: 12/11/23 Order Info: 0786-1 - CMP Order Info: [id number] - LIPID Performed By: #### L 100.0100, L500.4050, L502.0250, L500.4100 #### [facility] [address] [place], [address] Cholesterol in VLDL [Mass/Vol] 21 mg/dL Normal 5-40 [facility] Comment on above: Order Comment: Order Date: 12/11/23 Order Info: 0786-1 - CMP Order Info: [id number] - LIPID Performed By: #### L 100.0100, L500.4050, L502.0250, L500.4100 #### [facility] [address] [place], [address] Triglyceride [Mass/Vol] 105 mg/dL Normal [facility] Comment on above: Order Comment: Order Date: 12/11/23 Order Info: 0786-1 - CMP Order Info: [id number] - LIPID Result Comment: The drugs N-Acetylcysteine and Metamizole may falsely depress this assay. Serum Triglycerides Reference Interval Normal <150 mg/dL Borderline high 150 - 199 mg/dL High 200 - 499 mg/dL Very High > or = 500 mg/dL Performed By: #### L 100.0100, L500.4050, L502.0250, L500.4100 #### [facility] [address] [place], [place], [id number] Microalb:Creat Ratio,Random URon 12-11-2023 Creatinine [Mass/Vol] 145.00 mg/dL Normal NO RANGE EST. [facility] Comment on above: Order Comment: Order Date: 12/11/23 Order Info: [id number] - MIACRE Performed By: #### L 100.0100, L500.4050, L502.0250, L500.4100 #### [facility] [address] [place], [address] MALB:CRE 4.9 mg/g CRE Normal <30 mg/g CRE [facility] Comment on above: Order Comment: Order Date: 12/11/23 Order Info: [id number] - MIACRE Performed By: #### L 100.0100, L500.4050, L502.0250, L500.4100 #### [facility] [address] [place], [address] MICROALBUMIN,UR 7.1 mg/L Normal NO RANGE EST. [facility] Comment on above: Order Comment: Order Date: 12/11/23 Order Info: [id number] - MIACRE Performed By: #### L 100.0100, L500.4050, L502.0250, L500.4100 #### [facility] [place], [address] OVon 07-13-2019 CNOV Office Visit (UCWSTR) LUCERO CLARK ([id number]) 1980 M Date Time Provider Department 07/13/19 6:45 AM LUICA PAINTER [facility] During your visit today, we recorded the following information about you: Temperature Pulse Respiration Weight 101.4 degrees 102/minute 18/minute 193.2 kg Lucia Painter APRN.SOFTWARE BUSINESS ANALYST 07/13/2019 7:44 AM Signed Subjective HPI Pt presents with c/o?tactile fevers, chills,?sore throat,?cough, runny nose?x?2 days. Developed coughing fits with wheezing last evening. Took a dose of Nyquil. No hx asthma or wheezing in the past. Has not taken any OTC medications for fevers. Took several Cepacol lozenges. Deniesmyalgias, chest tightness, dyspnea. Received?influenza vaccine this season. Review of Systems Constitutional: Positive for chills, fever and malaise/fatigue. HENT: Positive for congestion and sore throat. Negative for ear pain. Respiratory: Positive for cough and wheezing. Negative for hemoptysis, sputum production and shortness of breath. Musculoskeletal: Positive for myalgias. Skin: Negative for rash. Objective Physical Exam Constitutional: He is oriented to person, place, and time and well-developed, well-nourished, and in no distress. No distress. HENT: Head: Normocephalic. Right Ear: Hearing, tympanic membrane, external ear and ear canal normal. Left Ear: Hearing, tympanic membrane, external ear and ear canal normal. Nose: Nose normal. Right sinus exhibits no maxillary sinus tenderness and no frontal sinus tenderness. Left sinus exhibits no maxillary sinus tenderness and no frontal sinus tenderness. Mouth/Throat: Uvula is midline, oropharynx is clear and moist and mucous membranes are normal. No oropharyngeal exudate. Eyes: Pupils are equal, round, and reactive to light. Conjunctivae are normal. Right eye exhibits no discharge. Left eye exhibits no discharge. Neck: Neck supple. Cardiovascular: Normal rate, regular rhythm and normal heart sounds. Exam reveals no gallop and no friction rub. No murmur heard. Pulmonary/Chest: Effort normal. No accessory muscle usage. No respiratory distress. He has decreased breath sounds (Good air movement throughout. Pulse ox 96% before albuterol tx). He has no wheezes. He has no rhonchi. He has no rales. Lymphadenopathy: He has no cervical adenopathy. Neurological: He is alert and oriented to person, place, and time. Skin: Skin is warm and dry. He is not diaphoretic. BP 128/82 Pulse 102 Temp (!) 38.6 ?C (101.4 ?F) (Tympanic) Resp 18 Wt (!) 193.2 kg (426 lb) SpO2 96% .Patient presents with: Chest Congestion: cough, fatigue, cough, fever and bodyaches x 3 days History reviewed. No pertinent past medical history. History reviewed. No pertinent surgical history. ALLERGIES Patient has no known allergies. MEDICATIONS amLODIPine (NORVASC) 10 mg tablet Take 10 mg by mouth once daily. nebivolol (BYSTOLIC) 10 mg tablet Take 10 mg by mouth once daily. LORATADINE ORAL Take by mouth. montelukast (SINGULAIR) 10 mg tablet Take 10 mg by mouth daily at bedtime. DOCOSAHEXANOIC ACID/EPA (FISH OIL ORAL) Take by mouth. MULTIVITAMIN ORAL Take by mouth. guaiFENesin (MUCINEX) 600 mg 12 hr tablet Take 2 tablets by mouth twice daily. benzonatate (TESSALON PERLE) 100 mg capsule Take 1 capsule by mouth three times daily as needed. albuterol HFA (PROVENTIL HFA, VENTOLIN HFA) 90 mcg/actuation inhaler Inhale 2 Puffs as instructed every 4 hours as needed. Inhalational Spacing Device spcr 1 Device one time only for 1 dose. naltrexone (TREXAN) 50 mg tablet Take 50 mg by mouth once daily. buPROPion (WELLBUTRIN) 100 mg tablet Take 100 mg by mouth twice daily. famotidine (PEPCID) 40 mg tablet Take 40 mg by mouth once daily. CALCIUM CARBONATE/VITAMIN D3 (CALCIUM 600 + D ORAL) Take by mouth. ubidecarenone Q-10 (COENZYME Q-10) 10 mg cap Take by mouth twice daily. History reviewed. No pertinent family history. Social History Tobacco Use - Smoking status: Former Smoker - Smokeless tobacco: Never Used Substance Use Topics - Alcohol use: Not on file - Drug use: Not on file ASSESSMENT/PLAN: 1. Influenza A - ICD9: 487.1, ICD10: J10.1 (primary diagnosis) - MUCINEX 600 MG TABLET, EXTENDED RELEASE - BENZONATATE 100 MG CAPSULE 2. Fever, unspecified fever cause - ICD9: 780.60, ICD10: R50.9 - INFLUENZA AANDB MOLECULAR (POC) 3. Wheezing - ICD9: 786.07, ICD10: R06.2 - ALBUTEROL SULFATE HFA 90 MCG/ACTUATION AEROSOL INHALER - INHALATIONAL SPACING DEVICE Reviewed influenza education and red flag SANDS. The patient is instructed to return or seek emergency treatment if symptoms become worse or with any acute change in condition. The patient verbalizes understanding and is in agreement with plan of care. ANDI Edmond, SANDER.ANDI 07/13/2019 7:23 AM Signed Flu (Influenza) What is the flu? The flu is a viral infection of the nose, throat, trachea, and bronchi that occurs every winter. Major epidemics every 3 or 4 years (for example, influenza). The main symptoms are a stuffy nose, sore throat, and nagging cough. There may be more muscle pain, headache, fever, and chills than colds usually cause. For most people, influenza is just a bad cold and bed rest is not necessary. Flu is not dangerous to people who are otherwise healthy. How can I take care of my child? The treatment of flu depends on a child's main symptoms and is no different from the treatment for other viral respiratory infections. Bed rest is not necessary. Fever or aches Use acetaminophen (Tylenol) every 6 hours or ibuprofen (Advil) every 8 hours for fever over 102?F (39?C). Children and adolescents who may have influenza should never take aspirin because it may cause Brian's syndrome. Cough or hoarseness For children over age 4 give cough drops. If your child is 1 to 4 years old, give corn syrup (1/2 to 1 teaspoon as needed). Sore throat Use hard candy for children over 4 years old. Warm chicken broth may also help children over 1 year old. Stuffy nose Warm-water or saline nosedrops and suction (or nose blowing) will open most blocked noses. Use nasal washes at least four times a day or whenever your child can't breathe through the nose. Saline nosedrops are made by adding 1/2 teaspoon of salt to 1 cup of warm water. Contagiousness Influenza spreads rapidly because the incubation period is only 24 to 36 hours and the virus is very contagious. Your child may return to day care or school after the fever is gone and he feels up to it. Does my child need antiviral medicine? Most healthcare providers do not use antiviral medicines because they only reduce the time that your child is sick by a day or so. Usually the runny nose lasts 7 to 14 days and the cough lasts 2 to 3 weeks. All antiviral medicines must be given within 48 hours of the start of influenza symptoms to have an effect. Antiviral medicine is usually only used to treat children at high-risk for complications from the flu. Talk with your healthcare provider about this. Does my child need a flu shot? Yearly flu shots have always been recommended for high-risk children over 6 months of age. These children often have complications from influenza, such as pneumonia. Parents and siblings of high-risk children should also get a flu shot. Children are considered high-risk if they have the following conditions: Lung disease, such as asthma Heart disease, such as a congenital heart disease Muscle disease, such as muscular dystrophy Metabolic disease, such as diabetes Renal disease, such as nephrotic syndrome Cancer or immune system conditions Diseases requiring long-term aspirin therapy. In 2006, the [employer] added all children age 6 months to 5 years to the list of people who should get a flu shot. Recent research has shown that healthy children younger than 24 months are at as great a risk of complications as children with the high-risk conditions listed above. When should I call my child's healthcare provider? Call IMMEDIATELY if: Your child is having trouble breathing. Your child starts to act very sick. Call during office hours if: Your child develops any complications such as an earache, sinus pain or pressure, or a fever lasting over 3 days. You have other questions or concerns. Published by [employer]. This content is reviewed periodically and is subject to change as new health information becomes available. The information is intended to inform and educate and is not a replacement for medical evaluation, advice, diagnosis or treatment by a healthcare professional. Written by Mary Jain M.D., author of Your Child's Health, [employer]. Copyright ? 2006 [employer] and/or one of its subsidiaries. All Rights Reserved. Copyright ? [employer] 2008 Pediatric Advisor Lucia Painter APRN.ANDI 07/13/2019 8:12 AM Signed Addended by: LUCIA PAINTER CNP on: 07/13/2019 08:12 AM Modules accepted: Orders Teodora Loera LPN 07/13/2019 8:26 AM Signed 2.5 solution aerosol treatment given per provider's orders. Prior to treatment O2 sat is 96%. Treatment completed. O2 sat is 94. Tolerated well.Teodora Loera LPN Referring Provider: SELF [200] Allergies As of Date: 07/13/2019 (No Known Allergies) Date Reviewed: 07/13/2019 Reviewed by: Triny Hardy Ma - Fully Assessed Reason for Visit: Chest Congestion [236] Cmt: cough, fatigue, cough, fever and bodyaches x 3 days Primary Visit Diagnosis:Influenza A [J10.1] Other Visit Diagnoses:Fever, unspecified fever cause [R50.9] Wheezing [R06.2] Order(s):INFLUENZA AANDB MOLECULAR (POC) [0305504] Order #: [id number]. #:[id number] guaiFENesin (MUCINEX) 600 mg 12 hr tabletTake 2 tablets by mouth twice daily.Disp: 60 tabletRfl: 0 benzonatate (TESSALON PERLE) 100 mg capsuleTake 1 capsule by mouth three times daily as needed.Disp: 60 capsuleRfl: 0 albuterol HFA (PROVENTIL HFA, VENTOLIN HFA) 90 mcg/actuation inhalerInhale 2 Puffs as instructed every 4 hours as needed.Disp: 1 InhalerRfl: 0 Inhalational Spacing Device spcr1 Device one time only for 1 dose.Disp: 1 EachRfl: 0 [] albuterol 2.5 mg /3 mL (0.083 %) 2.5 mg (PROVENTIL)Disp: Rfl: Prescriptions as of 07/13/2019 Sig: AMLODIPINE 10 MG TABLET Take 10 mg by mouth once ellen* NEBIVOLOL 10 MG TABLET Take 10 mg by mouth once ellen* LORATADINE ORAL Take by mouth. MONTELUKAST 10 MG TABLET Take 10 mg by mouth daily at * FISH OIL ORAL Take by mouth. MULTIVITAMIN ORAL Take by mouth. MUCINEX 600 MG TABLET, EXTEND* Take 2 tablets by mouth twice* BENZONATATE 100 MG CAPSULE Take 1 capsule by mouth three* ALBUTEROL SULFATE HFA 90 MCG/* Inhale 2 Puffs as instructed * INHALATIONAL SPACING DEVICE 1 Device one time only for 1 * NALTREXONE 50 MG TABLET Take 50 mg by mouth once ellen* BUPROPION HCL 100 MG TABLET Take 100 mg by mouth twice da* FAMOTIDINE 40 MG TABLET Take 40 mg by mouth once ellen* CALCIUM 600 + D ORAL Take by mouth. COENZYME Q10 10 MG CAPSULE Take by mouth twice daily. Problem List As Of Date: 07/13/2019 (None) Other instructions from your clinician: Flu (Influenza) What is the flu? The flu is a viral infection of the nose, throat, trachea, and bronchi that occurs every winter. Major epidemics every 3 or 4 years (for example, influenza). The main symptoms are a stuffy nose, sore throat, and nagging cough. There may be more muscle pain, headache, fever, and chills than colds usually cause. For most people, influenza is just a bad cold and bed rest is not necessary. Flu is not dangerous to people who are otherwise healthy. How can I take care of my child? The treatment of flu depends on a child's main symptoms and is no different from the treatment for other viral respiratory infections. Bed rest is not necessary. Fever or aches Use acetaminophen (Tylenol) every 6 hours or ibuprofen (Advil) every 8 hours for fever over 102?F (39?C). Children and adolescents who may have influenza should never take aspirin because it may cause Brian's syndrome. Cough or hoarseness For children over age 4 give cough drops. If your child is 1 to 4 years old, give corn syrup (1/2 to 1 teaspoon as needed). Sore throat Use hard candy for children over 4 years old. Warm chicken broth may also help children over 1 year old. Stuffy nose Warm-water or saline nosedrops and suction (or nose blowing) will open most blocked noses. Use nasal washes at least four times a day or whenever your child can't breathe through the nose. Saline nosedrops are made by adding 1/2 teaspoon of salt to 1 cup of warm water. Contagiousness Influenza spreads rapidly because the incubation period is only 24 to 36 hours and the virus is very contagious. Your child may return to day care or school after the fever is gone and he feels up to it. Does my child need antiviral medicine? Most healthcare providers do not use antiviral medicines because they only reduce the time that your child is sick by a day or so. Usually the runny nose lasts 7 to 14 days and the cough lasts 2 to 3 weeks. All antiviral medicines must be given within 48 hours of the start of influenza symptoms to have an effect. Antiviral medicine is usually only used to treat children at high-risk for complications from the flu. Talk with your healthcare provider about this. Does my child need a flu shot? Yearly flu shots have always been recommended for high-risk children over 6 months of age. These children often have complications from influenza, such as pneumonia. Parents and siblings of high-risk children should also get a flu shot. Children are considered high-risk if they have the following conditions: Lung disease, such as asthma Heart disease, such as a congenital heart disease Muscle disease, such as muscular dystrophy Metabolic disease, such as diabetes Renal disease, such as nephrotic syndrome Cancer or immune system conditions Diseases requiring long-term aspirin therapy. In 2006, the [employer] added all children age 6 months to 5 years to the list of people who should get a flu shot. Recent research has shown that healthy children younger than 24 months are at as great a risk of complications as children with the high-risk conditions listed above. When should I call my child's healthcare provider? Call IMMEDIATELY if: Your child is having trouble breathing. Your child starts to act very sick. Call during office hours if: Your child develops any complications such as an earache, sinus pain or pressure, or a fever lasting over 3 days. You have other questions or concerns. Published by [employer]. This content is reviewed periodically and is subject to change as new health information becomes available. The information is intended to inform and educate and is not a replacement for medical evaluation, advice, diagnosis or treatment by a healthcare professional. Written by Mary Jain M.D., author of Your Child's Health, [employer]. Copyright ? 2006 [employer] and/or one of its subsidiaries. All Rights Reserved. Copyright ? [employer] 2007 Pediatric Advisor Visit Notes: >> Teodora Loera LPN Tuemmanuel Jul 13, 2019 8:25 AM Status: Signed 2.5 solution aerosol treatment given per provider's orders. Prior to treatment O2 sat is 96%. Treatment completed. O2 sat is 94. Tolerated well.Teodora Loera LPN Prescriptions ordered this encounter Disp Refills Start End MUCINEX 600 MG TABLET, EXTENDED RELE* 60 t* 0 07/13/2019 Route: ORAL Sig: Take 2 tablets by mouth twice daily. BENZONATATE 100 MG CAPSULE 60 c* 0 07/13/2019 Route: ORAL Sig: Take 1 capsule by mouth three times daily as needed. ALBUTEROL SULFATE HFA 90 MCG/ACTUATI* 1 In* 0 07/13/2019 Route: INHALATION Sig: Inhale 2 Puffs as instructed every 4 hours as needed. INHALATIONAL SPACING DEVICE 1 Ea* 0 07/13/2019 07/13/2019 Route: Misc Si Device one time only for 1 dose. ALBUTEROL SULFATE 2.5 MG/3 ML (0.083* 07/13/2019 07/13/2019 Route: INHALATION Letter Text Encounter Status:Closed by LUCIA PAINTER CNP on 07/13/19 Normal [facility] PROGRESSon 07-13-2019 PROGRESS HNO ID: [id number] Author: Lucia Painter Service: ? Author Type: Nurse Practitioner Type: Progress Notes Filed: 07/13/2019 7:44 AM Note Text: Subjective HPI Pt presents with c/o?tactile fevers, chills,?sore throat,?cough, runny nose?x?2 days. Developed coughing fits with wheezing last evening. Took a dose of Nyquil. No hx asthma or wheezing in the past. Has not taken any OTC medications for fevers. Took several Cepacol lozenges. Deniesmyalgias, chest tightness, dyspnea. Received?influenza vaccine this season. Review of Systems Constitutional: Positive for chills, fever and malaise/fatigue. HENT: Positive for congestion and sore throat. Negative for ear pain. Respiratory: Positive for cough and wheezing. Negative for hemoptysis, sputum production and shortness of breath. Musculoskeletal: Positive for myalgias. Skin: Negative for rash. Objective Physical Exam Constitutional: He is oriented to person, place, and time and well-developed, well-nourished, and in no distress. No distress. HENT: Head: Normocephalic. Right Ear: Hearing, tympanic membrane, external ear and ear canal normal. Left Ear: Hearing, tympanic membrane, external ear and ear canal normal. Nose: Nose normal. Right sinus exhibits no maxillary sinus tenderness and no frontal sinus tenderness. Left sinus exhibits no maxillary sinus tenderness and no frontal sinus tenderness. Mouth/Throat: Uvula is midline, oropharynx is clear and moist and mucous membranes are normal. No oropharyngeal exudate. Eyes: Pupils are equal, round, and reactive to light. Conjunctivae are normal. Right eye exhibits no discharge. Left eye exhibits no discharge. Neck: Neck supple. Cardiovascular: Normal rate, regular rhythm and normal heart sounds. Exam reveals no gallop and no friction rub. No murmur heard. Pulmonary/Chest: Effort normal. No accessory muscle usage. No respiratory distress. He has decreased breath sounds (Good air movement throughout. Pulse ox 96% before albuterol tx). He has no wheezes. He has no rhonchi. He has no rales. Lymphadenopathy: He has no cervical adenopathy. Neurological: He is alert and oriented to person, place, and time. Skin: Skin is warm and dry. He is not diaphoretic. BP 128/82 Pulse 102 Temp (!) 38.6 ?C (101.4 ?F) (Tympanic) Resp 18 Wt (!) 193.2 kg (426 lb) SpO2 96% .Patient presents with: Chest Congestion: cough, fatigue, cough, fever and bodyaches x 3 days History reviewed. No pertinent past medical history. History reviewed. No pertinent surgical history. ALLERGIES Patient has no known allergies. MEDICATIONS amLODIPine (NORVASC) 10 mg tablet Take 10 mg by mouth once daily. nebivolol (BYSTOLIC) 10 mg tablet Take 10 mg by mouth once daily. LORATADINE ORAL Take by mouth. montelukast (SINGULAIR) 10 mg tablet Take 10 mg by mouth daily at bedtime. DOCOSAHEXANOIC ACID/EPA (FISH OIL ORAL) Take by mouth. MULTIVITAMIN ORAL Take by mouth. guaiFENesin (MUCINEX) 600 mg 12 hr tablet Take 2 tablets by mouth twice daily. benzonatate (TESSALON PERLE) 100 mg capsule Take 1 capsule by mouth three times daily as needed. albuterol HFA (PROVENTIL HFA, VENTOLIN HFA) 90 mcg/actuation inhaler Inhale 2 Puffs as instructed every 4 hours as needed. Inhalational Spacing Device spcr 1 Device one time only for 1 dose. naltrexone (TREXAN) 50 mg tablet Take 50 mg by mouth once daily. buPROPion (WELLBUTRIN) 100 mg tablet Take 100 mg by mouth twice daily. famotidine (PEPCID) 40 mg tablet Take 40 mg by mouth once daily. CALCIUM CARBONATE/VITAMIN D3 (CALCIUM 600 + D ORAL) Take by mouth. ubidecarenone Q-10 (COENZYME Q-10) 10 mg cap Take by mouth twice daily. History reviewed. No pertinent family history. Social History Tobacco Use - Smoking status: Former Smoker - Smokeless tobacco: Never Used Substance Use Topics - Alcohol use: Not on file - Drug use: Not on file ASSESSMENT/PLAN: 1. Influenza A - ICD9: 487.1, ICD10: J10.1 (primary diagnosis) - MUCINEX 600 MG TABLET, EXTENDED RELEASE - BENZONATATE 100 MG CAPSULE 2. Fever, unspecified fever cause - ICD9: 780.60, ICD10: R50.9 - INFLUENZA AANDB MOLECULAR (POC) 3. Wheezing - ICD9: 786.07, ICD10: R06.2 - ALBUTEROL SULFATE HFA 90 MCG/ACTUATION AEROSOL INHALER - INHALATIONAL SPACING DEVICE Reviewed influenza education and red flag SANDS. The patient is instructed to return or seek emergency treatment if symptoms become worse or with any acute change in condition. The patient verbalizes understanding and is in agreement with plan of care. Lucia Painter CNP Normal [facility] Encounters Encounter Date Encounter Type Care Provider Facility Start: 06-04-2024 End: 06-04-2024 ambulatory Librado Rai Facility:[facility] Start: 01-01-2024 ambulatory Health Risk Assessment Facility:[facility] Start: 12-11-2023 End: 12-11-2023 ambulatory Librado Rai Facility:[facility] Payers Date Payer Category Payer Self-pay 2021 Unknown [id number] Unknown [id number] Unknown [id number] Unknown [id number] Summary Purpose Family History No Family History Records FoundNo Family History Records Found Advance Directives No Advanced Directives Records FoundNo Advanced Directives Records Found Additional Source Comments (unrecognized sect ion and content) No Status Records FoundNo Status Records Found INFORMATION SOURCE (unrecogn ized section and content) DATE CREATED AUTHOR 07/13/2019 [facility] DATE CREATED AUTHOR AUTHOR'S ORGANIZ ATION 07/04/2024 [facility] FOR RECORDS PERTAINING TO PATIENTS WHO ARE OR HAVE BEEN ENROLLED IN A CHEMICAL DEPENDENCY/SUBSTANCEABUSE PROGRAM, SOME INFORMATION MAY BE OMITTED. This clinical summary was aggregated from multiple sources. Caution should be exercised in using it in the provision of clinical care. This summary normalizes information from multiple sources, and as a consequence, information in this document may materially change the coding, format and clinical context of patient data. In addition, data may be omitted in some cases. CLINICAL DECISIONS SHOULD BE BASED ON THE PRIMARY CLINICAL RECORDS. [employer] provides no warranty or guarantee of the accuracy or completeness of information in this document.
[2024-11-23 10:50] LABS: ALB/GLOB Ratio 1.7 RATIO (0.9-2.4); AST(SGOT) 19 U/L (<=37); Alanine Aminotransfer ALT/SGPT 23 U/L (<=46); Albumin, Serum 4.3 g/dL (3.5-5.0); Alkaline Phosphatase 67 U/L (40-129); Anion Gap 11 (5-15); BUN 13 mg/dL (4-19); BUN/Creat Ratio 14.3 RATIO (10-20); Calcium,Total 9.4 mg/dL (7.6-11.0); Carbon Dioxide 26.7 mmol/L (21.0-32.0); Chloride 101 mmol/L (98-108); EST Glomerular Filtration Rate 108 (>60); Globulin 2.5 g/dL (2.2-4.2); Glucose 124 mg/dL (70-99); Potassium 4.5 mmol/L (3.3-5.1); Protein, Total 6.9 g/dL (5.9-8.4); Sodium Level 138 mmol/L (133-145)
[2024-11-23 11:29] LABS: Microalbumin,Random Urine 25.8 mg/L (NO RANGE EST.); Microalbumin:Creatinine Ratio 67.2 mg/g CRE
== END | disposition home or self-care (01) ==
LOC: MFPLAB 08:53
PROVIDERS: PCP Family Medicine; Referring Provider Family Medicine; Visit Provider Family Medicine
DX: E11.9 Type 2 diabetes mellitus without complications (principal)
CPT/HCPCS: 36415; 80053; 82043; 82570; 85025

== ENCOUNTER → 2025-06-10 | Outpatient (CLI) | payer OTHER, SELFPAY ==
--- OUTSIDE RECORDS SUMMARY | 2025-06-10 10:11 | XMS RPT_ITS | CCD ---
Author Organization [facility] Care Team Providers Care Associate Program Manager Name Role Phone Fredi RICHARDSON, Dr. Pavon Primary Care Provider Dr. Li Rai MD Attending Provider [phone] Dr. Li Rai MD Referring Provider Li Rai MD Primary Care Provider [phone] Li Rai Attending Unavailable Li Rai Referring Unavailable Li Rai Primary Care Unavailable Li Rai Primary Care Unavailable Assessment, Health Risk Attending Unavaila ble Li Rai Attending Unavailable Li Rai Referring Unavailable Li Rai Primary Care Unavailable Li Rai Primary Care Unavailable Li Rai Attending Unavailable Li Rai Referring Unavailable LI RAI Primary Care Unavailable LI RAI Referring Unavailable JOSSE OLIVEROS Attending Unavailable LI RAI Referring Unavailable LI RAI Primary Care Unavailable LI RAI Primary Care Unavailable LI RAI Referring Unavailable Medications Current Medications Medication Drug Class(es) Dates Sig (Normalized) Sig (Original) [id number] 200 actuat albuterol 0.09 mg/actuat metered dose inhaler (3 sources) beta2-Adrenergic Agonist Start: 07-13-2019 take 2 puff(s) by inhalation every four hours as needed albuterol HFA (PROVENTIL HFA, VENTOLIN HFA) 90 mcg/actuation inhaler Indications: Wheezing Inhale 2 Puffs as instructed every 4 hours as needed. 1 Inhaler 07/13/2019 Active amLODIPine 10 mg oral tablet (4 sources) Dihydropyridine Calcium Channel Rigoberto Start: 07-26-2016 take 1 tablet by mouth once daily Amlodipine (Norvasc) 10 MG tablet Active 10 mg PO DAILY July 26, 2016 1:00am benzonatate 100 mg oral capsule (3 sources) Non-narcotic Antitussive Start: 07-13-2019 take 1 capsule by mouth three times daily as needed benzonatate (TESSALON PERLE) 100 mg capsule Indications: Influenza A Take 1 capsule by mouth three times daily as needed. 60 capsule 07/13/2019 Active smoking cessation 12 hr buPROPion hydrochloride 150 mg extended release oral tablet (4 sources) Aminoketone Start: 07-26-2016 take 1 tablet by mouth twice daily Bupropion Hcl 150 MG tablet sustained-releas e 12 hr Active 150 mg PO TWICE A DAY July 26, 2016 1:00am take 1 tablet by mouth twice donna ly buPROPion (WELLBUTRIN) 100 mg tablet Take 100 mg by mouth twice daily. Active calcium carbonate 1250 mg oral tablet (1 source) Start: 07-26-2016 take 1 tablet by mouth once daily Calcium Carbonate 500 MG tablet Active 500 mg PO DAILY July 26, 2016 1:00am Calcium Carbonate / vitamin D3 (3 sources) CALCIUM CARBONATE/VITAMIN D3 (CALCIUM 600 + D ORAL) Take by mouth. Active DOCOSAHEXANOIC ACID/EPA (FISH OIL ORAL) (3 sources) DOCOSAHEXANOIC ACID/EPA (FISH OIL ORAL) Take by mouth. Active famotidine 40 mg oral tablet (4 sources) Histamine-2 Receptor Antagonist Start: 07-26-2016 take 1 tablet by mouth once daily Famotidine (Pepcid) 40 MG tablet Active 40 mg PO DAILY July 26, 2016 1:00am 12 hr guaiFENesin 600 mg extended release oral tablet (3 sources) Start: 07-13-2019 take 2 tablets by mouth twice daily guaiFENesin (MUCINEX) 600 mg 12 hr tablet Indications: Influenza A Take 2 tablets by mouth twice daily. 60 tablet 07/13/2019 Active Loratadine (3 sources) LORATADINE ORAL Take by mouth. Active montelukast 10 mg oral tablet (4 sources) Leukotriene Receptor Antagonist Start: 07-26-2016 take 1 tablet by mouth once daily Montelukast 10 MG tablet Active 10 mg PO DAILY July 26, 2016 1:00am Multivitamin (Multiple Vitamins) 1 EACH tablet (1 source) Start: 07-26-2016 take 1 tablet by mouth once daily Multivitamin (Multiple Vitamins) 1 EACH tablet Active 1 NMA PO DAILY July 26, 2016 1:00am MULTIVITAMIN ORAL (3 sources) MULTIVITAMIN ORA L Take by mouth. Active naltrexone hydrochloride 50 mg oral tablet (4 sources) Opioid Antagonist Start: 07-26-2016 take 1 tablet by mouth twice daily Naltrexone (Revia) 50 MG tablet Active 25 mg PO TWICE A DAY July 26, 2016 1:00am take 1 tablet by mouth once ellen y naltrexone (TREXAN) 50 mg tablet Take 50 mg by mouth once daily. Active nebivolol 10 mg oral tablet (4 sources) Start: 07-26-2016 take 1 tablet by mouth once daily Nebivolol (Bystolic) 10 MG tablet Active 10 mg PO DAILY July 26, 2016 1:00am [place] 6-Ord-Ude-Fish Oil (Fish Oil) 500 MG capsule,delayed release(DR/EC) (1 source) Start: 07-26-2016 [place] 3-Dha-Ep a-Fish Oil (Fish Oil) 500 MG capsule,delayed release(DR/EC) Active 1000 mg PO DAILY July 26, 2016 1:00am ubidecarenone 200 mg oral capsule (4 sources) Start: 07-26-2016 take 10 capsules by mouth once daily Coenzyme Q10 200 MG capsule Active 200 mg PO DAILY July 26, 2016 1:00am ubidecarenone Q- 10 (COENZYME Q-10) 10 mg cap Take by mouth twice daily. Active Problems Problem Classification Problem Date Documented Da te Episodic/Chronic Diabetes mellitus without complication (1 source) Type 2 diabetes mellitus without complications; Translations: [Type 2 diabetes mellitus without complications] Onset: 11-30-2024 Chronic Gastrointestinal hemorrhage (1 source) Rectal hemorrhage; Translations: [Hemorrhage of anus and rectum] 08-02-2016 Episodic Other non-traumatic joint disorders (6 sources) Pain of left shoulder joint; Translations: [Pain in left shoulder] Onset: 12-20-2024 12-20-2024 Episodic Other non-traumatic joint disorders (1 source) Pain in left shoulder; Translations: [Pain in joint of left shoulder] Onset: 12-20-2024 Episodic Results Test Name Value Interpretation Reference Range Facility CNTHERAPYon 01-10-2025 CNTHERAPY OT/PT/Speech Visit (PTWS) ---- LUCERO CLARK ([id number]) 1980 M Date Time Provider Department 01/10/25 12:30 PM ALLI NORTON PTJAX Date Time Provider Department Center 01/10/2025 12:30 PM [id number] NORTON [facility] Reason for Visit: Patient Left Without Being Seen [2006] Primary Visit Diagnosis:Pain in joint of left shoulder [M25.512] Allergies As of Date: 01/10/2025 (No Known Allergies) Date Reviewed: 07/13/2019 Reviewed by: Triny Hardy (Taina) - Fully Assessed Prescriptions as of 01/11/2025 - guaiFENesin (MUCINEX) 600 mg 12 hr tablet Take 2 tablets by mouth twice daily. - benzonatate (TESSALON PERLE) 100 mg capsule Take 1 capsule by mouth three times daily as needed. - albuterol HFA (PROVENTIL HFA, VENTOLIN HFA) 90 mcg/actuation inhaler Inhale 2 Puffs as instructed every 4 hours as needed. - amLODIPine (NORVASC) 10 mg tablet Take 10 mg by mouth once daily. - naltrexone (TREXAN) 50 mg tablet Take 50 mg by mouth once daily. - nebivolol (BYSTOLIC) 10 mg tablet Take 10 mg by mouth once daily. - buPROPion (WELLBUTRIN) 100 mg tablet Take 100 mg by mouth twice daily. - famotidine (PEPCID) 40 mg tablet Take 40 mg by mouth once daily. - LORATADINE ORAL Take by mouth. - montelukast (SINGULAIR) 10 mg tablet Take 10 mg by mouth daily at bedtime. - CALCIUM CARBONATE/VITAMIN D3 (CALCIUM 600 + D ORAL) Take by mouth. - ubidecarenone Q-10 (COENZYME Q-10) 10 mg cap Take by mouth twice daily. - DOCOSAHEXANOIC ACID/EPA (FISH OIL ORAL) Take by mouth. - MULTIVITAMIN ORAL Take by mouth. Normal [facility] Glucoseon 01-06-2025 Glucose [Mass/Vol] 110 mg/dL High 70-99 [facility] Comment on above: Performed By: #### L 500.6700, L501.0100 #### [facility] [address] [place], [address] Lipid Profileon 01-06-2025 CHOL:HDL 2.26 Normal [facility] Comment on above: Performed By: #### L 500.4100, L501.0100 #### [facility] [address] [place], [address] Cholesterol [Mass/Vol] 90 mg/dL Normal <=200 [facility] Comment on above: Result Comment: Chol esterol level, Desirable <200 mg/dL Borderline high cholesterol 200-239 mg/dL High cholesterol >=240 mg/dL Recommendations of the NCEP Adult Treatment Panel for the following risk-cutoff thresholds for the [place] Citizen [place] population. Performed By: #### L 500.4100, L501.0100 #### [facility] [address] [place], [address] Cholesterol in HDL [Mass/Vol] 40 mg/dL Normal [facility] Comment on above: Result Comment: Earline onal Cholesterol Education Program (NCEP) guidelines: <40 mg/dL: Low HDL-cholesterol (major risk factor for CHD) >= 60 mg/dL: High HDL-cholesterol (negative risk factor for CHD) HDL-cholesterol is affected by a number of factors, e.g. smoking, exercise, hormones, sex and age. Performed By: #### L 500.4100, L501.0100 #### [facility] [address] [place], [address] Cholesterol in LDL [Mass/Vol] 21 mg/dL Normal [facility] Comment on above: Result Comment: Bord rbmmoq=770-421 mg/dL Higher Konw=590 mg/dL or greater Performed By: #### L 500.4100, L501.0100 #### [facility] [address] [place], [address] Cholesterol in VLDL [Mass/Vol] 29 mg/dL Normal 5-40 [facility] Comment on above: Performed By: #### L 500.4100, L501.0100 #### [facility] [address] [place], [address] Triglyceride [Mass/Vol] 144 mg/dL Normal [facility] Comment on above: Result Comment: The drugs N-Acetylcysteine and Metamizole may falsely depress this assay. Normal range: <150 mg/dL Borderline High: 150-199 mg/dL High: 200-499 mg/dL Very High: >500 mg/dL Performed By: #### L 500.4100, L501.0100 #### [facility] [address] [place], [address] CNTHERAPYon 01-03-2025 CNTHERAPY OT/PT/Speech Visit (PTWS) ---- LUCERO CLARK ([id number]) 1980 M Date Time Provider Department 01/03/25 12:30 PM ALLI NORTON PTWS Date Time Provider Department Center 01/03/2025 12:30 PM [id number], MARIAH PTWS [facility] Reason for Visit: Physical Therapy [503] Primary Visit Diagnosis:Pain in joint of left shoulder [M25.512] Allergies As of Date: 01/03/2025 (No Known Allergies) Date Reviewed: 07/13/2019 Reviewed by: Triny Hardy) - Fully Assessed Prescriptions as of 01/03/2025 - guaiFENesin (MUCINEX) 600 mg 12 hr tablet Take 2 tablets by mouth twice daily. - benzonatate (TESSALON PERLE) 100 mg capsule Take 1 capsule by mouth three times daily as needed. - albuterol HFA (PROVENTIL HFA, VENTOLIN HFA) 90 mcg/actuation inhaler Inhale 2 Puffs as instructed every 4 hours as needed. - amLODIPine (NORVASC) 10 mg tablet Take 10 mg by mouth once daily. - naltrexone (TREXAN) 50 mg tablet Take 50 mg by mouth once daily. - nebivolol (BYSTOLIC) 10 mg tablet Take 10 mg by mouth once daily. - buPROPion (WELLBUTRIN) 100 mg tablet Take 100 mg by mouth twice daily. - famotidine (PEPCID) 40 mg tablet Take 40 mg by mouth once daily. - LORATADINE ORAL Take by mouth. - montelukast (SINGULAIR) 10 mg tablet Take 10 mg by mouth daily at bedtime. - CALCIUM CARBONATE/VITAMIN D3 (CALCIUM 600 + D ORAL) Take by mouth. - ubidecarenone Q-10 (COENZYME Q-10) 10 mg cap Take by mouth twice daily. - DOCOSAHEXANOIC ACID/EPA (FISH OIL ORAL) Take by mouth. - MULTIVITAMIN ORAL Take by mouth. Roofing Machine Tender: Therapy (PT/OT/Speech/Resp) ID: [id number] 01/03/2025 1:00 PM Author: ALLI NORTON Signed by ALLI NORTON SKEIN YARN DRIER on 01/03/2025 at 1:00 PM Document text: Program_ID:[id number] Access Code: [email or web address] URL: [email or web address] Date: 01-03-2025 Prepared By: Josse Oliveros Program Notes Exercises - Doorway Pec Stretch at 60 Degrees Abduction with Arm Straight - 1 x daily - 7 x weekly - 3 sets - 10 reps - Scaption with Dumbbells - 1 x daily - 7 x weekly - 3 sets - 10 reps - Shoulder External Rotation with Anchored Resistance - 1 x daily - 7 x weekly - 3 sets - 10 reps - Shoulder Internal Rotation with Resistance - 1 x daily - 7 x weekly - 3 sets - 10 reps - Seated Shoulder Flexion AAROM with Kayleen Behind - 1 x daily - 7 x weekly - 3 sets - 10 reps - Standing Shoulder Abduction Slides at Wall - 1 x daily - 7 x weekly - 2 sets - 10 reps - Standing Shoulder Internal Rotation AAROM with Dowel - 1 x daily - 7 x weekly - 2 sets - 10 reps Normal [facility] THERAPY NTon 01-03-2025 THERAPY NT HNO ID: [id number] Author: ALLI NORTON PTA Service: ? Author Type: Planning Lead Type: Therapy (PT/OT/Speech/Resp) Filed: 01/03/2025 13:00 Note Text: Program_ID:[id number] Access Code: [email or web address] URL: [email or web address] [email or web address] Date: 01-03-2025 Prepared By: Josse Oliveros Program Notes Exercises - Doorway Pec Stretch at 60 Degrees Abduction with Arm Straight - 1 x daily - 7 x weekly - 3 sets - 10 reps - Scaption with Dumbbells - 1 x daily - 7 x weekly - 3 sets - 10 reps - Shoulder External Rotation with Anchored Resistance - 1 x daily - 7 x weekly - 3 sets - 10 reps - Shoulder Internal Rotation with Resistance - 1 x daily - 7 x weekly - 3 sets - 10 reps - Seated Shoulder Flexion AAROM with Kayleen Behind - 1 x daily - 7 x weekly - 3 sets - 10 reps - Standing Shoulder Abduction Slides at Wall - 1 x daily - 7 x weekly - 2 sets - 10 reps - Standing Shoulder Internal Rotation AAROM with Dowel - 1 x daily - 7 x weekly - 2 sets - 10 reps Normal [facility] CNTHERAPYon 12-20-2024 CNTHERAPY OT/PT/Speech Visit (PTWS) ---- LUCERO CLARK ([id number]) 1980 M Date Time Provider Department 12/20/24 9:00 AM JOSSE OLIVEROS PTWS Date Time Provider Department Center 12/20/2024 9:00 AM [id number], SEAN PTWS [facility] Reason for Visit: PT Eval [747] Primary Visit Diagnosis:Pain in joint of left shoulder [M25.512] Allergies As of Date: 12/20/2024 (No Known Allergies) Date Reviewed: 07/13/2019 Reviewed by: Triny Hardy (Taina) - Fully Assessed Prescriptions as of 12/20/2024 - guaiFENesin (MUCINEX) 600 mg 12 hr tablet Take 2 tablets by mouth twice daily. - benzonatate (TESSALON PERLE) 100 mg capsule Take 1 capsule by mouth three times daily as needed. - albuterol HFA (PROVENTIL HFA, VENTOLIN HFA) 90 mcg/actuation inhaler Inhale 2 Puffs as instructed every 4 hours as needed. - amLODIPine (NORVASC) 10 mg tablet Take 10 mg by mouth once daily. - naltrexone (TREXAN) 50 mg tablet Take 50 mg by mouth once daily. - nebivolol (BYSTOLIC) 10 mg tablet Take 10 mg by mouth once daily. - buPROPion (WELLBUTRIN) 100 mg tablet Take 100 mg by mouth twice daily. - famotidine (PEPCID) 40 mg tablet Take 40 mg by mouth once daily. - LORATADINE ORAL Take by mouth. - montelukast (SINGULAIR) 10 mg tablet Take 10 mg by mouth daily at bedtime. - CALCIUM CARBONATE/VITAMIN D3 (CALCIUM 600 + D ORAL) Take by mouth. - ubidecarenone Q-10 (COENZYME Q-10) 10 mg cap Take by mouth twice daily. - DOCOSAHEXANOIC ACID/EPA (FISH OIL ORAL) Take by mouth. - MULTIVITAMIN ORAL Take by mouth. Roofing Machine Tender: Addendum Therapy (PT/OT/Speech/Resp) ID: [id number] 12/20/2024 9:40 AM Author: JOSSE OLIVEROS Signed by JOSSE OLIVEROS PT on 12/20/2024 at 9:40 AM * * * This document replaces document [id number] * * * Document text: Program_ID:[id number] Access Code: [email or web address] URL: [email or web address] [employer] m/ Date: 12-20-2024 Prepared By: Josse Oliveros Program Notes Exercises - Doorway Pec Stretch at 60 Degrees Abduction with Arm Straight - 1 x daily - 7 x weekly - 3 sets - 10 reps - Scaption with Dumbbells - 1 x daily - 7 x weekly - 3 sets - 10 reps - Shoulder External Rotation with Anchored Resistance - 1 x daily - 7 x weekly - 3 sets - 10 reps - Shoulder Internal Rotation with Resistance - 1 x daily - 7 x weekly - 3 sets - 10 reps - Seated Shoulder Flexion AAROM with Kayleen Behind - 1 x daily - 7 x weekly - 3 sets - 10 reps Normal [facility] THERAPY NTon 12-20-2024 THERAPY NT HNO ID: [id number] Author: JOSSE OLIVEROS PT Service: ? Author Type: Physical Therapist Type: Therapy (PT/OT/Speech/Resp) Filed: 12/20/2024 09:40 Note Text: Program_ID:[id number] Access Code: [email or web address] URL: [email or web address] [email or web address] m/ Date: 12-20-2024 Prepared By: Josse Oliveros Program Notes Exercises - Doorway Pec Stretch at 60 Degrees Abduction with Arm Straight - 1 x daily - 7 x weekly - 3 sets - 10 reps - Scaption with Dumbbells - 1 x daily - 7 x weekly - 3 sets - 10 reps - Shoulder External Rotation with Anchored Resistance - 1 x daily - 7 x weekly - 3 sets - 10 reps - Shoulder Internal Rotation with Resistance - 1 x daily - 7 x weekly - 3 sets - 10 reps - Seated Shoulder Flexion AAROM with Kayleen Behind - 1 x daily - 7 x weekly - 3 sets - 10 reps Normal [facility] Microalb:Creat Ratio,Random URon 12-07-2024 MALB:CREAT 6.7 mg/g CRE Normal [facility] Comment on above: Order Comment: Order Date: 11/23/24 Order Info: [id number] - MIALB Result Comment: AMENDED REPORT 12/07/24 1336 MALB:CREAT previously reported as: 67.2 mg/g CRE Performed By: #### L 502.0250 #### [facility] [address] [place], [address] Absolute lymphocyte countOrd ered By: Li Rai on 11-23-2024 Lymphocytes Auto (Unsp spec) [#/Vol] 2.92 10*3/uL 0.83-4.51 [facility] Absolute neutrophil countOrd ered By: Li Rai on 11-23-2024 Neutrophils (Bld) [#/Vol] 8.0 10*3/uL High 2.0-7.7 [facility] Anion gap in Serum or Plasma Ordered By: Li Rai on 11-23-2024 Anion gap [Moles/Vol] 11 mmol/L 5- [facility] Automated lymphocyte count a s percentage of total leukocytesOrdered By: Li Rai on 11-23-2024 Lymphocytes/100 WBC Auto (Unsp spec) 23.3 % - [facility] BUN/creatinine ratioOrdered By: Li Rai on 11-23-2024 Urea nitrogen/Creatinine [Mass ratio] 14.3 mg/mg 10- [facility] Basophil percentageOrdered B y: Li Rai on 11-23-2024 Basophils/100 WBC (Bld) 1.1 % High 0- [facility] Bilirubin, totalOrdered By: Li Rai on 11-23-2024 Bilirubin [Mass/Vol] 1.20 mg/dL 0.00-1.30 [facility] CBC W/Diff, Automatedon 11-14 Absolute Lymph 2.92 X10 3/uL Normal 0.83-4.51 [facility] Comment on above: Order Comment: Order Date: 11/23/24 Order Info: [id number] - CBCD Performed By: #### L 100.0100, L500.4050 #### [facility] [address] [place], [address] Absolute Neut 8.0 X10 3/uL High 2.0-7.7 [facility] Comment on above: Order Comment: Order Date: 11/23/24 Order Info: 0184-1 - CBCD Performed By: #### L 100.0100, L500.4050 #### [facility] [address] [place], [address] Basophils/100 WBC (Bld) 1.1 % High 0-1 [facility] Comment on above: Order Comment: Order Date: 11/23/24 Order Info: 0184-1 - CBCD Performed By: #### L 100.0100, L500.4050 #### [facility] [address] [place], [address] Eosinophils/100 WBC (Bld) 1.8 % Normal 0-5 [facility] Comment on above: Order Comment: Order Date: 11/23/24 Order Info: 0184- - CBCD Performed By: #### L 100.0100, L500.4050 #### [facility] [address] [place], [address] Erythrocyte distribution width (RBC) [Ratio] 11.9 % Normal 11.6-14.6 [facility] Comment on above: Order Comment: Order Date: 11/23/24 Order Info: 0184-1 - CBCD Performed By: #### L 100.0100, L500.4050 #### [facility] [address] [place], [address] Hematocrit (Bld) [Volume fraction] 44.8 % Normal 40-54 [facility] Comment on above: Order Comment: Order Date: 11/23/24 Order Info: 0184-1 - CBCD Performed By: #### L 100.0100, L500.4050 #### [facility] [address] [place], [address] Hemoglobin (Bld) [Mass/Vol] 15.1 g/dL Normal 13.0-16.5 [facility] Comment on above: Order Comment: Order Date: 11/23/24 Order Info: 018- - CBCD Performed By: #### L 100.0100, L500.4050 #### [facility] [address] [place], [address] IG% 0.500 Normal 0.0-0.9 [facility] Comment on above: Order Comment: Order Date: 11/23/24 Order Info: 018- - CBCD Result Comment: IG% - Immature Granulocytes (promyelocytes, myelocytes and metamyelocytes) > 1% indicates that a LEFT SHIFT is Present. Performed By: #### L 100.0100, L500.4050 #### [facility] [address] [place], [address] Lymphocytes/100 WBC (Bld) 23.3 % Normal 19-41 [facility] Comment on above: Order Comment: Order Date: 11/23/24 Order Info: 018- - CBCD Performed By: #### L 100.0100, L500.4050 #### [facility] [address] [place], [address] MCH (RBC) [Entitic mass] 31.2 pg Normal 27.0-32.0 [facility] Comment on above: Order Comment: Order Date: 11/23/24 Order Info: 018- - CBCD Performed By: #### L 100.0100, L500.4050 #### [facility] [address] [place], [address] MCHC (RBC) [Mass/Vol] 33.7 g/dL Normal 32-36 [facility] Comment on above: Order Comment: Order Date: 11/23/24 Order Info: 018- - CBCD Performed By: #### L 100.0100, L500.4050 #### [facility] [address] [place], [address] MCV (RBC) [Entitic vol] 92.6 fL Normal 80-94 [facility] Comment on above: Order Comment: Order Date: 11/23/24 Order Info: 0184-1 - CBCD Performed By: #### L 100.0100, L500.4050 #### [facility] [address] [place], [address] Monocytes/100 WBC (Bld) 9.3 % Normal 0-10 [facility] Comment on above: Order Comment: Order Date: 11/23/24 Order Info: 0184-1 - CBCD Performed By: #### L 100.0100, L500.4050 #### [facility] [address] [place], [address] Neutrophils/100 WBC (Bld) 64.0 % Normal 47-70 [facility] Comment on above: Order Comment: Order Date: 11/23/24 Order Info: 0184-1 - CBCD Performed By: #### L 100.0100, L500.4050 #### [facility] [address] [place], [address] Nucleated RBC (Bld) [#/Vol] 0 10*3/uL Normal 0-5 [facility] Comment on above: Order Comment: Order Date: 11/23/24 Order Info: 0184-1 - CBCD Performed By: #### L 100.0100, L500.4050 #### [facility] [address] [place], [address] Platelet mean volume (Bld) [Entitic vol] 10.7 fL Normal 6.2-12.0 [facility] Comment on above: Order Comment: Order Date: 11/23/24 Order Info: 0184-1 - CBCD Performed By: #### L 100.0100, L500.4050 #### [facility] [address] [place], [address] Platelets (Bld) [#/Vol] 313 10*3/uL Normal 150-450 [facility] Comment on above: Order Comment: Order Date: 11/23/24 Order Info: 0184-1 - CBCD Performed By: #### L 100.0100, L500.4050 #### [facility] [address] [place], [address] RBC (Bld) [#/Vol] 4.84 10*6/uL Normal 4.6-6.2 [facility] Comment on above: Order Comment: Order Date: 11/23/24 Order Info: 0184-1 - CBCD Performed By: #### L 100.0100, L500.4050 #### [facility] [address] [place], [address] RDW SD 40.8 fl Normal 35.1-43.9 [facility] Comment on above: Order Comment: Order Date: 11/23/24 Order Info: 0184-1 - CBCD Performed By: #### L 100.0100, L500.4050 #### [facility] [address] [place], [address] WBC (Bld) [#/Vol] 12.6 10*3/uL High 4.4-11.0 [facility] Comment on above: Order Comment: Order Date: 11/23/24 Order Info: 0184-1 - CBCD Performed By: #### L 100.0100, L500.4050 #### [facility] [address] [place], [address] Carbon dioxide, total [Moles /volume] in Central venous bloodOrdered By: Li Rai on 11-23-2024 CO2 [Moles/Vol] 26.7 mmol/L 21.0-32.0 [facility] Chloride assayOrdered By: Jef Rai on 11-23-2024 Chloride [Moles/Vol] 101 mmol/L 98-108 [facility] Comprehensive Metabolic Prof ilon 11-23-2024 Albumin [Mass/Vol] 4.3 g/dL Normal 3.5-5.0 [facility] Comment on above: Order Comment: Order Date: 11/23/24 Order Info: [id number] - CMP Performed By: #### L 100.0100, L500.4050 #### [facility] [address] [place], [address] Albumin/Globulin [Mass ratio] 1.7 {ratio} Normal 0.9-2.4 [facility] Comment on above: Order Comment: Order Date: 11/23/24 Order Info: [id number] - CMP Performed By: #### L 100.0100, L500.4050 #### [facility] [address] [place], [address] ALK PHOS 67 U/L Normal 40-129 [facility] Comment on above: Order Comment: Order Date: 11/23/24 Order Info: [id number] - CMP Performed By: #### L 100.0100, L500.4050 #### [facility] [address] [place], [address] ALT [Catalytic activity/Vol] 23 U/L Normal <=46 [facility] [facility] Comment on above: Order Comment: Order Date: 11/23/24 Order Info: 0786-1 - CMP Performed By: #### L 100.0100, L500.4050 #### [facility] [address] [place], [address] AST [Catalytic activity/Vol] 19 U/L Normal <=37 [facility] Comment on above: Order Comment: Order Date: 11/23/24 Order Info: 0786-1 - CMP Performed By: #### L 100.0100, L500.4050 #### [facility] [address] [place], [address] Bilirubin [Mass/Vol] 1.20 mg/dL Normal 0.00-1.30 [facility] Comment on above: Order Comment: Order Date: 11/23/24 Order Info: 0786-1 - CMP Performed By: #### L 100.0100, L500.4050 #### [facility] [address] [place], [address] BUN/CRE 14.3 RATIO Normal 10-20 [facility] Comment on above: Order Comment: Order Date: 11/23/24 Order Info: 0786-1 - CMP Performed By: #### L 100.0100, L500.4050 #### [facility] [address] [place], [address] Calcium [Mass/Vol] 9.4 mg/dL Normal 7.6-11.0 [facility] Comment on above: Order Comment: Order Date: 11/23/24 Order Info: 0786-1 - CMP Performed By: #### L 100.0100, L500.4050 #### [facility] [address] [place], [address] Chloride [Moles/Vol] 101 mmol/L Normal 98-108 [facility] Comment on above: Order Comment: Order Date: 11/23/24 Order Info: 0786-1 - CMP Performed By: #### L 100.0100, L500.4050 #### [facility] [address] [place], [address] CO2 [Moles/Vol] 26.7 mmol/L Normal 21.0-32.0 [facility] Comment on above: Order Comment: Order Date: 11/23/24 Order Info: 0786-1 - CMP Performed By: #### L 100.0100, L500.4050 #### [facility] [address] [place], [address] Creatinine [Mass/Vol] 0.90 mg/dL Normal 0.70-1.20 [facility] Comment on above: Order Comment: Order Date: 11/23/24 Order Info: 0786-1 - CMP Performed By: #### L 100.0100, L500.4050 #### [facility] [address] [place], [address] GAP 11 Normal 5-15 [facility] Comment on above: Order Comment: Order Date: 11/23/24 Order Info: 0786-1 - CMP Performed By: #### L 100.0100, L500.4050 #### [facility] [address] [place], [address] GFR/1.73 sq M.predicted among non-blacks MDRD (S/P/Bld) [Vol rate/Area] 108 mL/min/{1.73_m2} Normal >60 [facility] Comment on above: Order Comment: Order Date: 11/23/24 Order Info: 0786-1 - CMP Result Comment: mL/m in/1.73m2 CKD-EPI Creatinine Equation (2020) Performed By: #### L 100.0100, L500.4050 #### [facility] [address] [place], [address] Globulin (S) [Mass/Vol] 2.5 g/dL Normal 2.2-4.2 [facility] Comment on above: Order Comment: Order Date: 11/23/24 Order Info: 0786-1 - CMP Performed By: #### L 100.0100, L500.4050 #### [facility] [address] [place], [address] Glucose [Mass/Vol] 124 mg/dL High 70-99 [facility] Comment on above: Order Comment: Order Date: 11/23/24 Order Info: 0786-1 - CMP Performed By: #### L 100.0100, L500.4050 #### [facility] [address] [place], [address] Potassium [Moles/Vol] 4.5 mmol/L Normal 3.3-5.1 [facility] Comment on above: Order Comment: Order Date: 11/23/24 Order Info: 0786-1 - CMP Performed By: #### L 100.0100, L500.4050 #### [facility] [address] [place], [address] Sodium [Moles/Vol] 138 mmol/L Normal 133-145 [facility] Comment on above: Order Comment: Order Date: 11/23/24 Order Info: 0786-1 - CMP Performed By: #### L 100.0100, L500.4050 #### [facility] [address] [place], [address] T PROT 6.9 g/dL Normal 5.9-8.4 [facility] Comment on above: Order Comment: Order Date: 11/23/24 Order Info: 0786-1 - CMP Performed By: #### L 100.0100, L500.4050 #### [facility] [address] [place], [address] Urea nitrogen [Mass/Vol] 13 mg/dL Normal 4-19 [facility] Comment on above: Order Comment: Order Date: 11/23/24 Order Info: 0786-1 - CMP Performed By: #### L 100.0100, L500.4050 #### [facility] [address] [place], [address] Eosinophil percentageOrdered By: Li Rai on 11-23-2024 Eosinophils/100 WBC (Bld) 1.8 % 0-5 [facility] Erythrocyte distribution wid th ratioOrdered By: Li Rai on 11-23-2024 Erythrocyte distribution width (RBC) [Ratio] 11.9 % 11.6-14.6 [facility] Erythrocyte distribution wid th standard deviationOrdered By: Li Rai on 11-23-2024 Erythrocyte distribution width (RBC) [Ratio] 40.8 fl 35.1-43.9 [facility] Glomerular filtration rate ( GFR) estimation/1.73 sq m using serum, plasma, or whole bOrdered By: Li Rai on 11-23-2024 GFR/1.73 sq M.predicted among non-blacks MDRD (S/P/Bld) [Vol rate/Area] 108 mL/min/{1.73_m2} >60 [facility] Comment on above: mL/min/1.73m2 CKD-EP I Creatinine Equation (2020) Hematocrit Auto (Bld) [Volum e fraction]Ordered By: Li Rai on 11-23-2024 Hematocrit (Bld) [Volume fraction] 44.8 % 40-54 [facility] Hemoglobin measurementOrdere d By: Li Rai on 11-23-2024 Hemoglobin (Bld) [Mass/Vol] 15.1 g/dL 13.0-16.5 [facility] Immature granulocytes/100 WB C Auto (Bld)Ordered By: Li Rai on 11-23-2024 Immature granulocytes/100 WBC (Bld) 0.500 % 0.0-0.9 [facility] Comment on above: IG% - Immature Granu locytes (promyelocytes, myelocytes and metamyelocytes) > 1% indicates that a LEFT SHIFT is Present. Laboratory - Chemistry and C hemistry - challengeOrdered By: Li Rai on 11-23-2024 AST [Catalytic activity/Vol] 19 U/L <38 [facility] MCV (mean corpuscular volume ) determinationOrdered By: Li Rai on 11-23-2024 MCV (RBC) [Entitic vol] 92.6 fL 80-94 [facility] Mean corpuscular hemoglobin (MCH) determinationOrdered By: Li Rai on 11-23-2024 MCH (RBC) [Entitic mass] 31.2 pg 27.0-32.0 [facility] Mean corpuscular hemoglobin concentration (MCHC) determinationOrdered By: Li Rai on 11-23-2024 MCHC (RBC) [Mass/Vol] 33.7 g/dL 32-36 [facility] Mean platelet volume determi nationOrdered By: Li Rai on 11-23-2024 Platelet mean volume (Bld) [Entitic vol] 10.7 fL 6.2-12.0 [facility] Monocyte percentageOrdered B y: Li Rai on 11-23-2024 Monocytes/100 WBC (Bld) 9.3 % 0-10 [facility] Neutrophil percentageOrdered By: Li Rai on 11-23-2024 Neutrophils/100 WBC (Bld) 64.0 % 47-70 [facility] Nucleated red blood cell per centageOrdered By: Li Rai on 11-23-2024 Nucleated RBC/100 WBC (Bld) [Ratio] 0 % 0-5 [facility] Platelet countOrdered By: Jef Rai on 11-23-2024 Platelets (Bld) [#/Vol] 313 10*3/uL 150-450 [facility] Potassium measurement (mass/ volume)Ordered By: Li Rai on 11-23-2024 Potassium (Unsp spec) [Mass/Vol] 4.5 mmol/L 3.3-5.1 [facility] RBC Auto (Bld) [#/Vol]Ordere d By: Li Rai on 11-23-2024 RBC (Bld) [#/Vol] 4.84 10*6/uL 4.6-6.2 [facility] Random urine creatinine star urement (mass/volume)Ordered By: Li Rai on 11-23-2024 Creatinine Unsp time (U) [Mass/Vol] 384.00 mg/dL High 39.00-259.00 [facility] Serum creatinine measurement (mass/volume)Ordered By: Li Rai on 11-23-2024 Creatinine [Mass/Vol] 0.90 mg/dL 0.70-1.20 [facility] Serum globulin measurementOr dered By: Li Rai on 11-23-2024 Globulin (S) [Mass/Vol] 2.5 g/dL 2.2-4.2 [facility] Serum glucose measurement (m ass/volume)Ordered By: Li Rai on 11-23-2024 Glucose [Mass/Vol] 124 mg/dL High 70-99 [facility] Serum or plasma alanine landaverde otransferase (ALT) measurementOrdered By: Li Rai on 11-23-2024 ALT [Catalytic activity/Vol] 23 U/L <47 [facility] Serum or plasma albumin star urement (mass/volume)Ordered By: Li Rai on 11-23-2024 Albumin [Mass/Vol] 4.3 g/dL 3.5-5.0 [facility] Serum or plasma albumin/glob ulin mass ratioOrdered By: Li Rai on 11-23-2024 Albumin/Globulin [Mass ratio] 1.7 {ratio} 0.9-2.4 [facility] Serum or plasma alkaline esteban sphatase measurementOrdered By: Li Rai on 11-23-2024 ALP [Catalytic activity/Vol] 67 U/L 40-129 [facility] Serum or plasma calcium star urement (mass/volume)Ordered By: Li Rai on 11-23-2024 Calcium [Mass/Vol] 9.4 mg/dL 7.6-11.0 [facility] Serum or plasma urea nitroge n measurement (mass/volume)Ordered By: Li Rai on 11-23-2024 Urea nitrogen [Mass/Vol] 13 mg/dL 4-19 [facility] Sodium levelOrdered By: Li Rai on 11-23-2024 Sodium [Moles/Vol] 138 mmol/L 133-145 [facility] Total proteinOrdered By: Chanel Rai on 11-23-2024 Protein [Mass/Vol] 6.9 g/dL 5.9-8.4 [facility] Urine albumin measurement wi detection limit of 20 mg/L or less (mass/volume)Ordered By: Li Rai on 11-23-2024 Albumin DL <= 20 mg/L (U) [Mass/Vol] 25.8 mg/L NO RANGE EST. [facility] White blood cell (WBC) count Ordered By: Li Rai on 11-23-2024 WBC (Bld) [#/Vol] 12.6 10*3/uL High 4.4-11.0 [facility] Comprehensive Metabolic Prof ilon 06-04-2024 Albumin [Mass/Vol] 3.7 g/dL Normal 3.2-5.0 [facility] Comment on above: Order Comment: Order Date: 06/04/24 Order Info: 0786-1 - CMP Order Info: 3016-3 - TSH Performed By: #### L 500.4050, L501.9520 #### [facility] [address] [place] [address], [id number] Albumin/Globulin [Mass ratio] 1.2 {ratio} Normal 0.9-2.4 [facility] Comment on above: Order Comment: Order Date: 06/04/24 Order Info: 0786-1 - CMP Order Info: 3 - TSH Performed By: #### L 500.4050, L501.9520 #### [facility] [address] [place], [address] ALK P 65 U/L Normal 45-117 [facility] Comment on above: Order Comment: Order Date: 06/04/24 Order Info: 785-1 - CMP Order Info: 3 - TSH Performed By: #### L 500.4050, L501.9520 #### [facility] [address] [place], [address] ALT [Catalytic activity/Vol] 34 U/L Normal 16-61 [facility] Comment on above: Order Comment: Order Date: 06/04/24 Order Info: 07-1 - CMP Order Info: 3015-08 - TSH Performed By: #### L 500.4050, L501.9520 #### [facility] [address] [place], [address] AST [Catalytic activity/Vol] 14 U/L Low 15-37 [facility] Comment on above: Order Comment: Order Date: 06/04/24 Order Info: 0786-1 - CMP Order Info: 3 - TSH Performed By: #### L 500.4050, L501.9520 #### [facility] [address] [place], [address] Bilirubin [Mass/Vol] 1.10 mg/dL High 0.20-1.00 [facility] Comment on above: Order Comment: Order Date: 06/04/24 Order Info: 0786-1 - CMP Order Info: 301-3 - TSH Result Comment: For patients on eltrombopag therapy, use of Dimension [place] TBIL is not recommended. Performed By: #### L 500.4050, L501.9520 #### [facility] [address] [place], [address] BUN/CRE 12.7 RATIO Normal 10-20 [facility] Comment on above: Order Comment: Order Date: 06/04/24 Order Info: 0786-1 - CMP Order Info: 3013 - TSH Performed By: #### L 500.4050, L501.9520 #### [facility] [address] [place], [address] CA,Total 8.9 mg/dL Normal 8.5-10.1 [facility] Comment on above: Order Comment: Order Date: 06/04/24 Order Info: 0786-1 - CMP Order Info: 3015-08 - TSH Performed By: #### L 500.4050, L501.9520 #### [facility] [address] [place], [address] Chloride [Moles/Vol] 104 mmol/L Normal 98-107 [facility] Comment on above: Order Comment: Order Date: 06/04/24 Order Info: 0786- - CMP Order Info: 3015-08 - TSH Performed By: #### L 500.4050, L501.9520 #### [facility] [address] [place], [address] CO2 [Moles/Vol] 28.0 mmol/L Normal 21.0-32.0 [facility] Comment on above: Order Comment: Order Date: 06/04/24 Order Info: 0786-1 - CMP Order Info: 3013 - TSH Performed By: #### L 500.4050, L501.9520 #### [facility] [address] [place], [address] Creatinine [Mass/Vol] 0.94 mg/dL Normal 0.70-1.30 [facility] Comment on above: Order Comment: Order Date: 06/04/24 Order Info: 0786-1 - CMP Order Info: 301-3 - TSH Result Comment: The validity of the calculated GFR GFRAA in patients over 70 years has not been determined. Clinical correlation is essential. Performed By: #### L 500.4050, L501.9520 #### [facility] [address] [place], [address] EST GFR - AA 112 mL/min Normal >60 [facility] Comment on above: Order Comment: Order Date: 06/04/24 Order Info: 07- - CMP Order Info: 3015-08 - TSH Result Comment: Afri can Citizen Of [place] GFR Calc Performed By: #### L 500.4050, L501.9520 #### [facility] [address] [place], [address] GAP 6 Normal 5-15 [facility] Comment on above: Order Comment: Order Date: 06/04/24 Order Info: 07 - CMP Order Info: 3015-08 - TSH Performed By: #### L 500.4050, L501.9520 #### [facility] [address] [place], [address] GFR/1.73 sq M.predicted among non-blacks MDRD (S/P/Bld) [Vol rate/Area] 93 mL/min/{1.73_m2} Normal >60 [facility] Comment on above: Order Comment: Order Date: 06/04/24 Order Info: 07 - CMP Order Info: 3015-08 - TSH Result Comment: Non- GFR Calc Performed By: #### L 500.4050, L501.9520 #### [facility] [address] [place], [address] Globulin (S) [Mass/Vol] 3.2 g/dL Normal 2.2-4.2 [facility] Comment on above: Order Comment: Order Date: 06/04/24 Order Info: 0786- - CMP Order Info: 3015-08 - TSH Performed By: #### L 500.4050, L501.9520 #### [facility] [address] [place], [address] Glucose [Mass/Vol] 119 mg/dL High 74-106 [facility] Comment on above: Order Comment: Order Date: 06/04/24 Order Info: 0786-1 - CMP Order Info: 3016-3 - TSH Result Comment: Fast ing Glucose result from 100 to 125 mg/dL suggests IMPAIRED HOMEOSTASIS per A.D.A. criteria. Performed By: #### L 500.4050, L501.9520 #### [facility] [address] [place], [address] Potassium [Moles/Vol] 4.2 mmol/L Normal 3.5-5.1 [facility] Comment on above: Order Comment: Order Date: 06/04/24 Order Info: 0786-1 - CMP Order Info: 301-3 - TSH Performed By: #### L 500.4050, L501.9520 #### [facility] [address] [place], [address] Sodium [Moles/Vol] 138 mmol/L Normal 136-145 [facility] Comment on above: Order Comment: Order Date: 06/04/24 Order Info: 0786-1 - CMP Order Info: 301-3 - TSH Performed By: #### L 500.4050, L501.9520 #### [facility] [address] [place], [address] T PROT 6.9 g/dL Normal 6.4-8.2 [facility] Comment on above: Order Comment: Order Date: 06/04/24 Order Info: 0786-1 - CMP Order Info: 3016-3 - TSH Performed By: #### L 500.4050, L501.9520 #### [facility] [address] [place], [address] Urea nitrogen [Mass/Vol] 12 mg/dL Normal 7-18 [facility] Comment on above: Order Comment: Order Date: 06/04/24 Order Info: 0786-1 - CMP Order Info: 3016-3 - TSH Performed By: #### L 500.4050, L501.9520 #### [facility] [address] [place], [address] Thyroid Stim Hormone (TSH)on 06-04-2024 TSH 1.970 uIU/mL Normal 0.358-3.740 [facility] Comment on above: Order Comment: Order Date: 06/04/24 Order Info: 0786-1 - CMP Order Info: 3016-3 - TSH Performed By: #### L 500.4050, L501.9520 #### [facility] [address] [place], [address] Encounters Encounter Date Encounter Type Care Provider Facility Start: 01-10-2025 End: 01-10-2025 ambulatory Alli Almodovarlinda [employer] Work Phone: [facility] Comment on above: Pain in joint of lef t shoulder (Primary Dx) Start: 01-06-2025 ambulatory Li Rai Facility:[facility] Start: 01-03-2025 End: 01-03-2025 ambulatory Alli SkillSurveyba [employer] Work Phone: [facility] Comment on above: Pain in joint of lef t shoulder (Primary Dx) Start: 12-20-2024 End: 12-20-2024 ambulatory Josse Oliveros PT [facility] Comment on above: Pain in joint of lef t shoulder (Primary Dx) Start: 11-29-2024 ambulatory Li Rai Facility:[facility] Start: 11-23-2024 End: 11-23-[address] Li Rai MD Work Phone: [facility] Work Phone: Start: 11-23-2024 End: 11-23-[address] Li Rai MD -Laboratory [facility] Start: 11-23-2024 End: 11-23-2024 ambulatory Li Rai Facility:[facility] Start: 06-04-2024 End: 06-04-2024 ambulatory Li Rai Facility:[facility] Procedures Date Procedure Procedure Detail Performing Clinician Start: 11-23-2024 Urine microalbumin/creatinine ratio measurement Dr. Li Rai MD Work Phone: Plan of Treatment Date Care Activity Detail Author Start: 05-30-2032 Urine microalbumin profile DTaP,Tdap,Td Vaccine (2 - Td or Tdap) [facility] Start: 02-14-2025 Influenza vaccination Influenza Vacc ine (#1) [facility] Start: 01-24-2025 End: 01-24-2025 ambulatory 01/24/2025 12:15 PM EDT OT/PT/Speech Visit [facility] [address] [place] [address] Josse Oliveros PT LEFT [employer]ATOR [employer] [facility] Comment on above: LEFT ROTATOR [employer] [facility] [employer] Start: 01-17-2025 End: 01-17-2025 ambulatory 01/17/2025 12:30 PM EDT OT/PT/Speech Visit [facility] [address] [place] [address] Alli Norton, [employer] [address] [place] [address] LEFT ROTATOR [employer]AIN [facility] Comment on above: LEFT ROTATOR CU[employer] [facility] Start: 01-10-2025 End: 01-10-2025 ambulatory 01/10/2025 12:30 PM EDT OT/PT/Speech Visit [facility] [address] [place] [address] Alli Norton, [employer] [address] [place] [address] LEFT ROTATOR [employer]FF STRAIN [facility] Comment on above: LEFT ROTATOR [facility] [facility] Start: 01-03-2025 End: 01-03-2025 ambulatory 01/03/2025 12:30 PM EDT OT/PT/Speech Visit [facility] [address] [place] [address] Alli Norton, [employer] [address] [place] [address] LEFT ROTATOR [employer] STRAIN [place] [facility] Comment on above: LEFT ROTATOR [employer] [facility] [employer] Start: 02-15-2024 Covid-19 Vaccine ( season) Covid-19 Vaccine ( season) [facility] Start: 09-29-2015 Lipid panel Lipid Screening [facility] Start: 09-29-1999 Hepatitis B Vaccine (1 of 3 - 19+ 3-dose series) Hepatitis B Vaccine (1 of 3 - 19+ 3-dose series) [facility] Start: 1998 Anxiety Screening Anxiety Screening [facility] Start: 1998 Depression Screening Depression Scre ening [facility] Start: 1998 Hepatitis C screening Hepatitis C Sc henry [facility] Start: 1998 HIV screening HIV Screening [facility] Immunizations Immunization Date Immunization Notes Care Provider [facility] 04-10-2019 influenza virus vacc ine, unspecified formulation Josse Oliveros PT [facility] 03-11-2009 influenza virus vacc ine, unspecified formulation Josse Oliveros PT [facility] Payers Date Payer Category Payer Self-pay 2021 Private Health [facility] [id number] 2021 Self-pay [id number] Unknown [id number] Unknown [id number] Unknown [id number] Unknown [id number] Social History Date Type Detail Facility Start: 09-18-2015 End: 07-26-2016 Tobacco smoking status NHIS Ex-smoker (finding) [facility] Start: 1980 Sex Assigned At Male [facility] History of tobacco use Current smoker [facility] Start: 09-18-2015 Tobacco use and exposure Smokeless tobacco non-user [facility] Start: 07-13-2019 Alcoholic beverage intake Not Asked [facility] Start: 07-13-2019 End: 12-20-2024 History of Social function [facility] Start: 07-13-2019 End: 12-20-2024 Tobacco use panel [facility] National Score (1-10 0), lower number is lower risk 92 [facility] Start: 1980 Sex assigned at Not on file [facility] Clinical Notes 12-20-2024 to 01-10-2025 Josse Oliveros, PT - 01/10/2025 12:19 PM Alli Peña PTA - 01/03/2025 1:00 PM Josse Bull PT - 01/03/2025 12:20 PM Josse Bull PT - 12/20/2024 10:57 AM EDT Note Date & Type Note Facility 01-10-2025 Note HNO ID: [id number] Author: JOSSE OLIVEROS PT Service: ? Author Type: Physical Therapist Type: Progress Notes Filed: 01/11/2025 09:44 Note Text: Pt came to therapy today, but voiced concern of insurance not covering as much of therapy cost. Clarified with clerical staff that pt has to meet deductible before insurance would pay 80/20. Pt given option to check into things and possibly be seen at a later date. Pt also was given phone number to reach out to patient financial business analyst if he feels he needs this for further assistance. No charge this session. KARISHMA Lopez, PT [facility] 01-10-2025 History of Present illness Narrative Pt came to therapy today, but voiced concern of insurance not covering as much of therapy cost. Clarified with clerical staff that pt has to meet deductible before insurance would pay 80/20. Pt given option to check into things and possibly be seen at a later date. Pt also was given phone number to reach out to patient financial business analyst if he feels he needs this for further assistance. No charge this session. KARISHMA Lopez PT documented in this encounter [facility] 01-03-2025 History of Present illness Narrative Program_ID:[id number] Access Code: [email or web address] URL: [email or web address] Date: 01-03-2025 Prepared By: Josse Oliveros Program Notes Exercises - Doorway Pec Stretch at 60 Degrees Abduction with Arm Straight - 1 x daily - 7 x weekly - 3 sets - 10 reps - Scaption with Dumbbells - 1 x daily - 7 x weekly - 3 sets - 10 reps - Shoulder External Rotation with Anchored Resistance - 1 x daily - 7 x weekly - 3 sets - 10 reps - Shoulder Internal Rotation with Resistance - 1 x daily - 7 x weekly - 3 sets - 10 reps - Seated Shoulder Flexion AAROM with Kayleen Behind - 1 x daily - 7 x weekly - 3 sets - 10 reps - Standing Shoulder Abduction Slides at Wall - 1 x daily - 7 x weekly - 2 sets - 10 reps - Standing Shoulder Internal Rotation AAROM with Dowel - 1 x daily - 7 x weekly - 2 sets - 10 reps Episode Visit Count: 2 Therapist That Will Accept/Oversee The Plan Of Care: Josse Oliveros Start of Care Date: 12/20/24 Onset Date: 12/21/23 Patient Identified by Name and Date of : Yes [facility] PHYSICAL THERAPY TREATMENT NOTE ASSESSMENT: Lucero L Cristopher tolerated the session with fatigue and expected muscle soreness. He demonstrated difficulty with scapular stabilization ball on wall . The patient will continue to benefit from ongoing skilled physical therapy to progress toward set goals. PLAN FOR NEXT VISIT: ER stretch with towel behind the back SUBJECTIVE: Pt reports that his L shoulder is doing good today. Pt reports that HEP is going well. Bettter ROM with getting his arm above his head. Pain: Pain Pain Level: 0 Pain Location: Shoulder - Left Post Treatment Pain Post Treatment Pain Level: No Change Post Treatment Symptoms: Fatigue OBJECTIVE MEASURES WITH LEVEL OF FUNCTION: Form observed throughout session. TREATMENT: Therapeutic Exercise: 1: Shoulder pulleys flexion and abduction in tolerated ROM 2: Pec stretch in doorway 3x30 sec (pressure in the elbow) 3: BTB ER 2x10 4: BTB IR 2x10 5: *IR with sheet behind the back 2x10 AAROM 6: Full can 5# 3x10 7: *Wall abduction slides AAROM 2x10 8: Scapular retractions 3x10 9: Ball on wall CCW and CW with 2# ball 3x10 Skilled Intervention: Patient was educated in proper exercise technique and purpose for exercises. Reviewed and educated patient on additions/changes for home exercise program as above (*). Skilled judgment was used in selection of appropriate interventions. Provided written instruction for home exercise program to facilitate proper performance and compliance. Correct performance of therapeutic exercises was facilitated with verbal and visual cuing. Billing Therapeutic Exercise Treatment Minutes: 44 Skilled Treatment Time Minutes (timed and untimed codes): 44 Total Session Time (minutes): 44 Session Start Time : 1218 Session Stop Time : 1302 KARISHMA Lopez PT documented in this encounter [facility] 01-03-2025 Note HNO ID: [id number] Author: JOSSE OLIVEROS PT Service: ? Author Type: Physical Therapist Type: Progress Notes Filed: 01/03/2025 14:09 Note Text: Episode Visit Count: 2 Therapist That Will Accept/Oversee The Plan Of Care: Josse Oliveros Start of Care Date: 12/20/24 Onset Date: 12/21/23 Patient Identified by Name and Date of : Yes REHABILITATION AND SPORTS THERAPY PHYSICAL THERAPY TREATMENT NOTE ASSESSMENT: Lucero Clark tolerated the session with fatigue and expected muscle soreness. He demonstrated difficulty with scapular stabilization ball on wall . The patient will continue to benefit from ongoing skilled physical therapy to progress toward set goals. PLAN FOR NEXT VISIT: ER stretch with towel behind the back SUBJECTIVE: Pt reports that his L shoulder is doing good today. Pt reports that HEP is going well. Bettter ROM with getting his arm above his head. Pain: Pain Pain Level: 0 Pain Location: Shoulder - Left Post Treatment Pain Post Treatment Pain Level: No Change Post Treatment Symptoms: Fatigue OBJECTIVE MEASURES WITH LEVEL OF FUNCTION: Form observed throughout session. TREATMENT: Therapeutic Exercise: 1: Shoulder pulleys flexion and abduction in tolerated ROM 2: Pec stretch in doorway 3x30 sec (pressure in the elbow) 3: BTB ER 2x10 4: BTB IR 2x10 5: *IR with sheet behind the back 2x10 AAROM 6: Full can 5# 3x10 7: *Wall abduction slides AAROM 2x10 8: Scapular retractions 3x10 9: Ball on wall CCW and CW with 2# ball 3x10 Skilled Intervention: Patient was educated in proper exercise technique and purpose for exercises. Reviewed and educated patient on additions/changes for home exercise program as above (*). Skilled judgment was used in selection of appropriate interventions. Provided written instruction for home exercise program to facilitate proper performance and compliance. Correct performance of therapeutic exercises was facilitated with verbal and visual cuing. Billing Therapeutic Exercise Treatment Minutes: 44 Skilled Treatment Time Minutes (timed and untimed codes): 44 Total Session Time (minutes): 44 Session Start Time : 1218 Session Stop Time : 1302 Alli Norton, KARISHMA Oliveros PT [facility] 12-20-2024 Note HNO ID: [id number] Author: JOSSE OLIVEROS PT Service: ? Author Type: Physical Therapist Type: Progress Notes Filed: 12/20/2024 11:03 Note Text: Episode Visit Count: 1 Therapist That Will Accept/Oversee The Plan Of Care: Josse Oliveros Start of Care Date: 12/20/24 Onset Date: 12/21/23 Patient Identified by Name and Date of : Yes REHABILITATION AND SPORTS THERAPY PHYSICAL THERAPY EVALUATION PLAN OF CARE: Assessment: Lucero Clark presents with chief complaint of L shoulder pain that interferes with nothing (but makes everything harder/more painful) . The patient presents with impairments in ADL's, overall function, range of motion, strength, and symptom management. Patient did not complete the PROMIS? (Patient Reported Outcome Measures Information System). Prognosis for therapy is Good due to: current objective clinical presentation, good overall health status, good support system/ coping skills . The patient will benefit from skilled therapy services to meet the goals established for this plan of care as noted below. Goals for Episode of Care: established 12/20/24 Ashley in home exercise program. Patient will decrease pain rating by 2 points to meet minimal clinical important difference for numeric pain rating scale. Patient will increase active ROM of L shoulder to WNL to allow pt to to improve performance of ADLs. Patient will demonstrate increase in L shoulder strength to 4+ to 5/5 during manual muscle testing in order to improve function for basic self-care tasks, home management tasks, and prior functional tasks. Perform reaching, lifting, self care with decreased report of symptoms/pain in 6-8 weeks. Perform bed mobility and ADLs without pain. Time Frame for Goals and Treatment : 02/20/25 Planned Interventions, Frequency, and Duration: Current Frequency: 1x/week Duration: 8 weeks Total Number of Visits Planned: 8 Planned Treatment Interventions: Therapeutic exercise (67192), Neuromuscular re-education (17130), Manual therapy (32168), Therapeutic activities (97453), Self-mcc management (98000), Patient/Family/Caregiver Education, Body Mechanics Training PLAN FOR NEXT VISIT: Assess carry over of HEP, progress strength and ROM per tolerance Patient demonstrates good understanding of plan of care and treatment. The above goals and plan of care were discussed and agreed upon by patient/family. SUBJECTIVE: L shoulder pain with insidious onset, maybe a swimming injury but hard to tell. Patient notes weakness in multiple positions- reaching up, behind back, rolling over in bed, putting on deodorant. Pain is across lateral joint line, straight down the front of the shoulder, and ocassionally in the back of the shoulder. Denies n/t, feels more painful and uncomfortable. Functional Limitations: nothing (but makes everything harder/more painful) Prior Level of Function: Independent without limitations Intake Information: Prescription present Previous Treatment: NSAIDs (muscle rubs) Pain: Pain Pain Level: 7 Pain Location: Shoulder - Left Description: Aching, Burning, Sore Frequency: Intermittent Post Treatment Pain Post Treatment Pain Level: No Change OBJECTIVE MEASURES WITH LEVEL OF FUNCTION: Shoulder Observations R Shoulder Palpation Tenderness: Supraspinatus, Bicipital groove UE AROM R UE AROM: WNL flexion, painful arc with abduction, major limitation with functional ER and IR with pain and weakness L UE AROM: WNL UE and Cervical Strength Strength Tested: Shoulder All R Shoulder Flexion: 5/5 R Shoulder Abduction (C5): 4/5 R Shoulder Internal Rotation: 5/5 R Shoulder External Rotation: 4/5 R Elbow Flexion (C6): 4/5 Special Tests - Shoulder Shoulder Special Tests: Empty Can, Malin-Nomi, Neer, Biceps Load, [place], Speed's, Sulcus Biceps Load: Left Negative Empty Can: Left Negative Malin-Nomi: Left Positive Neer: Left Positive [place]: Left Negative Speed's: Left Negative Sulcus: Left Negative Education: Education Learning Preferences: Demonstration, Explanation, Performance, Printed Materials Barriers: None Learning/educational needs: Home exercise program, Plan of Care, Body Mechanics Education Provided: Yes, see treatment interventions for education provided Education Provided To: Patient Education Mode/Type: Demonstration, Explanation/Discussion, Literature/Printed Materials, Performance Response to Education/Teach Back: States/Identifies, Return Demonstration TREATMENT: PT Treatment Interventions: Therapeutic Exercise, Self-Long Term Management Evaluation Therapeutic Exercise: 1: *Shoulder pulleys 3x10 in tolerated ROM 2: *Pec stretch in doorway 3x30 sec 3: *Full can 1-2# 3x10 4: *BTB ER 3x10 5: *BTB IR 3x10 Skilled Intervention: Patient was educated in proper exercise technique and purpose for exercises. Skilled judgment was used in selection of appropriate interve (more content not included)... [facility] 12-20-2024 History of Present illness Narrative Episode Visit Count: 1 Therapist That Will Accept/Oversee The Plan Of Care: Josse Oliveros Start of Care Date: 12/20/24 Onset Date: 12/21/23 Patient Identified by Name and Date of : Yes REHABILITATION AND SPORTS THERAPY PHYSICAL THERAPY EVALUATION PLAN OF CARE: Assessment: Lucero Clark presents with chief complaint of L shoulder pain that interferes with nothing (but makes everything harder/more painful) . The patient presents with impairments in ADL's, overall function, range of motion, strength, and symptom management. Patient did not complete the PROMIS (Patient Reported Outcome Measures Information System). Prognosis for therapy is Good due to: current objective clinical presentation, good overall health status, good support system/ coping skills . The patient will benefit from skilled therapy services to meet the goals established for this plan of care as noted below. Goals for Episode of Care: established 12/20/24 Ashley in home exercise program. Patient will decrease pain rating by 2 points to meet minimal clinical important difference for numeric pain rating scale. Patient will increase active ROM of L shoulder to WNL to allow pt to to improve performance of ADLs. Patient will demonstrate increase in L shoulder strength to 4+ to 5/5 during manual muscle testing in order to improve function for basic self-care tasks, home management tasks, and prior functional tasks. Perform reaching, lifting, self care with decreased report of symptoms/pain in 6-8 weeks. Perform bed mobility and ADLs without pain. Time Frame for Goals and Treatment : 02/20/25 Planned Interventions, Frequency, and Duration: Current Frequency: 1x/week Duration: 8 weeks Total Number of Visits Planned: 8 Planned Treatment Interventions: Therapeutic exercise (59106), Neuromuscular re-education (45374), Manual therapy (43413), Therapeutic activities (11181), Self-mcc management (12716), Patient/Family/Caregiver Education, Body Mechanics Training PLAN FOR NEXT VISIT: Assess carry over of HEP, progress strength and ROM per tolerance Patient demonstrates good understanding of plan of care and treatment. The above goals and plan of care were discussed and agreed upon by patient/family. SUBJECTIVE: L shoulder pain with insidious onset, maybe a swimming injury but hard to tell. Patient notes weakness in multiple positions- reaching up, behind back, rolling over in bed, putting on deodorant. Pain is across lateral joint line, straight down the front of the shoulder, and ocassionally in the back of the shoulder. Denies n/t, feels more painful and uncomfortable. Functional Limitations: nothing (but makes everything harder/more painful) Prior Level of Function: Independent without limitations Intake Information: Prescription present Previous Treatment: NSAIDs (muscle rubs) Pain: Pain Pain Level: 7 Pain Location: Shoulder - Left Description: Aching, Burning, Sore Frequency: Intermittent Post Treatment Pain Post Treatment Pain Level: No Change OBJECTIVE MEASURES WITH LEVEL OF FUNCTION: Shoulder Observations R Shoulder Palpation Tenderness: Supraspinatus, Bicipital groove UE AROM R UE AROM: WNL flexion, painful arc with abduction, major limitation with functional ER and IR with pain and weakness L UE AROM: WNL UE and Cervical Strength Strength Tested: Shoulder All R Shoulder Flexion: 5/5 R Shoulder Abduction (C5): 4/5 R Shoulder Internal Rotation: 5/5 R Shoulder External Rotation: 4/5 R Elbow Flexion (C6): 4/5 Special Tests - Shoulder Shoulder Special Tests: Empty Can, Malin-Nomi, Neer, Biceps Load, [place], Speed's, Sulcus Biceps Load: Left Negative Empty Can: Left Negative Malin-Nomi: Left Positive Neer: Left Positive [place]: Left Negative Speed's: Left Negative Sulcus: Left Negative Education: Education Learning Preferences: Demonstration, Explanation, Performance, Printed Materials Barriers: None Learning/educational needs: Home exercise program, Plan of Care, Body Mechanics Education Provided: Yes, see treatment interventions for education provided Education Provided To: Patient Education Mode/Type: Demonstration, Explanation/Discussion, Literature/Printed Materials, Performance Response to Education/Teach Back: States/Identifies, Return Demonstration TREATMENT: PT Treatment Interventions: Therapeutic Exercise, Self-Long Term Management Evaluation Therapeutic Exercise: 1: *Shoulder pulleys 3x10 in tolerated ROM 2: *Pec stretch in doorway 3x30 sec 3: *Full can 1-2# 3x10 4: *BTB ER 3x10 5: *BTB IR 3x10 Skilled Intervention: Patient was educated in proper exercise technique and purpose for exercises. Skilled judgment was used in selection of appropriate interventions. Provided written instruction for home exercise program to facilitate proper performance and compliance. Correct performance of therapeutic exercises was facilitated with verbal, visual, and tactile cuing. Self-Long Term Management: 1: Reviewed shoulder mechanics and function of RTC musculature, relating to exam findings today. Skilled Intervention: Skilled judgment in the selection of proper modification for activity of daily living/home management based on clinical presentation, deficits, and needs. Reviewed patient specific diagnosis in relation to activities of daily living/home management. Activity progression based on professional judgement. Billing * Evaluation Low Complexity: 1 Unit Therapeutic Exercise Treatment Minutes: 16 Self-Care/Home Management Treatment Minutes: 9 Skilled Treatment Time Minutes (timed and untimed codes): 46 Total Session Time (minutes): 46 Session Start Time : 902 Session Stop Time : 948 Josse Oliveros PT Program_ID:[id number] Access Code: [email or web address] URL: [email or web address] Date: 12-20-2024 Prepared By: Josse Oliveros Program Notes Exercises - Doorway Pec Stretch at 60 Degrees Abduction with Arm Straight - 1 x daily - 7 x weekly - 3 sets - 10 reps - Scaption with Dumbbells - 1 x daily - 7 x weekly - 3 sets - 10 reps - Shoulder External Rotation with Anchored Resistance - 1 x daily - 7 x weekly - 3 sets - 10 reps - Shoulder Internal Rotation with Resistance - 1 x daily - 7 x weekly - 3 sets - 10 reps - Seated Shoulder Flexion AAROM with Kayleen Behind - 1 x daily - 7 x weekly - 3 sets - 10 reps documented in this encounter [facility] Evaluation note No assessment inform ation available [facility] Work Phone: Evaluation note Diagnosis Pain in joint of left shoulder- Primary Pain in joint, shoulder region [facility] Diagnosis Pain in joint of left shoulder- Primary Pain in joint, shoulder region [facility] Diagnosis Pain in joint of left shoulder- Primary Pain in joint, shoulder region [facility] (narrative)No reason for referral information availableA[facility] Work Phone: Advance Directives No Advanced Directives Records Found Advance Directive Response Recorded Date/ Time Advance Directives No July 10:59am Summary Purpose Family History No Family History Records FoundNo Family History Records Found Additional Source Comments Care Teams (unrecognized sec tion and content) Team Status: Active Member Role Status Dates Dr. Li Rai MD Primary Care Provider Active Team Status: Inactive Member Role Status Dates Dr. Li Rai MD Primary Care Provider Active Start: November 23, 2024 End: November 23, 2024 Dr. Li Rai MD Attending Provider Active St art: November 23, 2024 End: November 23, 2024 Dr. Li Rai MD Referring Provider Active St art: November 23, 2024 End: November 23, 2024 Associate Program Manager Relationship Specialty Start Date End Date Li Rai MD PCP - General Family Medicine 09/18/15 Associate Program Manager Relationship Specialty Start Date End Date Li Rai MD PCP - General Family Medicine 09/18/15 Associate Program Manager Relationship Specialty Start Date End Date Li Rai MD PCP - General Family Medicine 09/18/15 Goals (unrecognized section and content) Goals may be documented in a n alternate section Source Comments (unrecognize d section and content) In the event this informatio n is protected by the Federal Confidentiality of Alcohol and Drug Abuse Patient Records regulations: The Federal rules restrict any use of the information to criminally investigate or prosecute any alcohol or drug abuse patient.[facility] the event this information is protected by the Federal Confidentiality of Alcohol and Drug Abuse Patient Records regulations: The Federal rules restrict any use of the information to criminally investigate or prosecute any alcohol or drug abuse patient.[facility] the event this information is protected by the Federal Confidentiality of Alcohol and Drug Abuse Patient Records regulations: The Federal rules restrict any use of the information to criminally investigate or prosecute any alcohol or drug abuse patient.[facility] Reason for Visit (unrecogniz ed section and content) Reason Comments Patient Left Without Being Seen Specialty Diagnoses / Procedures Referred By Contac t Referred To Contact PHYSICAL THERAPY Diagnoses L rotor cuff strain-painfull subcap and infraspinatus Procedures PHYSICAL THERAPY EVALUATION HIGH COMPLEX 45 MINS THERAPEUTIC EXERCISES RE, EA 15 MIN. NEW RS PT Li Harrison MD [address] [place] [address] Phone: tel: fax: [facility] [address] [place] [address] Phone: tel: fax: Referral ID Status Reason Start Date Expiration Date V isits Requested Visits Authorized [id number] Authorized 06/16/2024 06/15/2025 25 25 Reason Comments Physical Therapy Reason Comments PT Eval (unrecognized sect ion and content) No Status Records FoundNo Status Records Found INFORMATION SOURCE (unrecogn ized section and content) DATE CREATED AUTHOR 01/07/2025 [facility] DATE CREATED AUTHOR AUTHOR'S ORGANIZ ATION 01/12/2025 [facility] FOR RECORDS PERTAINING TO PATIENTS WHO ARE [...] BE BASED ON THE PRIMARY CLINICAL RECORDS. [facility] [employer] [facility]. provides no warranty or guarantee of the accuracy or completeness of information in this document.
[2025-06-10 12:14] LABS: Cholesterol 90 mg/dL (<=200); Low Density Lipoprotein Calc. 38 mg/dL; Triglycerides 104 mg/dL; Very Low Density Lipoprotein 21 mg/dL (5-40); cholesterol:hdl ratio screen 2.76
[2025-06-10 12:17] LABS: Creatinine, Urine (random) 343.00 mg/dL (39.00-259.00); Microalbumin,Random Urine 26.2 mg/L (<20 mg/L)
[2025-06-10 12:27] LABS: AST(SGOT) 16 U/L (<=37); Alanine Aminotransfer ALT/SGPT 19 U/L (<=46); Albumin, Serum 4.3 g/dL (3.5-5.0); Alkaline Phosphatase 66 U/L (40-129); Anion Gap 11 (7-18); BUN 14 mg/dL (4-19); BUN/Creat Ratio 17.4 RATIO (10-20); Calcium,Total 9.4 mg/dL (7.6-11.0); Carbon Dioxide 24.8 mmol/L (20.0-29.0); Chloride 104 mmol/L (96-106); Globulin 2.6 g/dL (2.2-4.2); Glucose 116 mg/dL (70-99); Potassium 4.4 mmol/L (3.5-5.1)
== END | disposition home or self-care (01) ==
LOC: MFPLAB 09:53
PROVIDERS: PCP Family Medicine; Visit Provider Family Medicine
DX: E11.9 Type 2 diabetes mellitus without complications (principal)
CPT/HCPCS: 36415; 80053; 80061; 82043; 82570